=== PATIENT | female | born 1980 | race Caucasian/White ===

== ENCOUNTER 2016-09-16 01:04 | Emergency (ER) | payer OTHER ==
[2016-09-16 01:09] VITALS: TEMP 97.4
[2016-09-16] MEDS ORDERED: diphenhydrAMINE 50 MG/ML 1 ML VIAL IVP STA (01:23)
[2016-09-16] MEDS ORDERED: SODIUM CHLORIDE 0.9% 1,000 ML IV STA (01:23)
[2016-09-16] MEDS ORDERED: methylPREDNISolone SOD SUCCI 125 MG/2 ML VIAL IV STA (01:23)
[2016-09-16] MEDS ORDERED: FAMOTIDINE 20 MG/2 ML VIAL IV STA (01:24)
[2016-09-16] MEDS ORDERED: LORazepam 2 MG/ML SYRINGE IV STA (01:55)
--- NOTE | 2016-09-16 02:04 | ED ---
Allergic Reaction HPI - General Chief complaint: Allergic Reaction Stated complaint: allergic reaction Time Seen by Provider: 09/16/16 01:21 Source: patient, family, RN notes reviewed Mode of arrival: ambulatory Limitations: no limitations - History of Present Illness Initial Comments: 35-year-old female presents to the emergency department with a chief complaint of ALLERGIC reaction. Patient states that she took gabapentin for the first time tonight. Patient states that immediately after she took this she felt her body get hot K a chief throat started to get states she has well. Patient states that she is concerned she is having ALLERGIC Reaction so she took Benadryl this was around 11:00 tonight. Patient states that immediately she did not feel better she waited a few minutes and she does not feel better as well as she came to the ER. Patient states this time she still feels itchy and hot. Patient denies any recent fever, chills, shortness of breath, chest pain, back pain, abdominal pain, nausea vomiting, numbness or tingling, dysuria or hematuria, constipation or diarrhea, headaches or visual changes, or any other current symptoms. - Related Data Home Medications Medication Instructions Recorded Confirmed SUMAtriptan SUCCINATE [Imitrex] 50 mg PO BID PRN 03/03/16 09/16/16 Rizatriptan Benzoate [Maxalt] 5 mg PO BID PRN 06/28/16 09/16/16 Gabapentin [Neurontin] 200 mg PO HS 09/16/16 09/16/16 Previous Rx's Medication Instructions Recorded Ibuprofen [Motrin] 800 mg PO Q8HR PRN #30 tab 03/25/15 Famotidine [Pepcid] 20 mg PO BID #10 tablet 09/16/16 diphenhydrAMINE [Benadryl] 50 mg PO HS PRN #5 capsule 09/16/16 predniSONE 50 mg PO DAILY #5 tab 09/16/16 Allergies Allergy/AdvReac Type Severity Reaction Status Date / Time gadobenate dimeglumine Allergy Severe Swelling Verified 09/16/16 01:09 [From Multihance] Iodinated Contrast Media - Allergy Severe Itching Verified 09/16/16 01:09 Oral and [Iodinated Contrast Media - IV Dye] cefaclor [From Ceclor] Allergy Rash/Hives Verified 09/16/16 01:09 fexofenadine HCl Allergy Rash/Hives Verified 09/16/16 01:09 [From Alice-D 12 Hour] omeprazole [From Prilosec] Allergy Rash/Hives Verified 09/16/16 01:09 omeprazole magnesium Allergy Rash/Hives Verified 09/16/16 01:09 [From Prilosec] pseudoephedrine HCl Allergy Rash/Hives Verified 09/16/16 01:09 [From Alice-D 12 Hour] sulfamethoxazole Allergy Rash/Hives Verified 09/16/16 01:09 [From Septra] trimethoprim [From Septra] Allergy Rash/Hives Verified 09/16/16 01:09 Review of Systems ROS Statement: Those systems with pertinent positive or pertinent negative responses have been documented in the HPI. ROS Other: All systems not noted in ROS Statement are negative. Past Medical History Past Medical History: Pneumonia, Syncope Additional Past Medical History / Comment(s): hx. of hemiplegic migraine, lupus , hypoglycemia, hypotension. History of Any Multi-Drug Resistant Organisms: None Reported Past Surgical History: Appendectomy, Breast Surgery, Section, Cholecystectomy, Tubal Ligation, Uterine Ablation Additional Past Surgical History / Comment(s): breast augmentation, many laparoscopies, oral surgery Past Anesthesia/Blood Transfusion Reactions: No Reported Reaction Additional Past Anesthesia/Blood Transfusion Reaction / Comment(s): anesthesia makes pt weepy Past Psychological History: No Psychological Hx Reported Smoking Status: Never smoker Past Alcohol Use History: Rare Past Drug Use History: None Reported - Past Family History Mother Family Medical History: No Reported History (Mother is 63-year-old the and has history of migraine as well as Whipple procedure.) Additional Family Medical History / Comment(s): migraines Sister(s) Family Medical History: No Reported History (Patient has 3 sisters no major medical problems) Son(s) Family Medical History: No Reported History (Patient has 2 sons no major medical problems) Daughter(s) Family Medical History: No Reported History (Patient has one daughter no major medical problems.) Father Family Medical History: Hypertension, Myocardial Infarction ([place]) (Father is 61- year-old has history of hypertension and myocardial infarction.) Additional Family Medical History / Comment(s): father has leukemia General Exam - General Exam Comments Initial Comments: General: The patient is awake and alert, in no distress, and does not appear acutely ill. Eye: Pupils are equal, round and reactive to light, extra-ocular movements are intact; there is normal conjunctiva bilaterally. No signs of icterus. Mild redness to bilateral cheeks. Ears, nose, mouth and throat: There are moist mucous membranes and no oral lesions. Neck: The neck is supple, there is no tenderness. Cardiovascular: There is a regular rate and rhythm. No murmur, rub or gallop is appreciated. Respiratory: Lungs are clear to auscultation, respirations are non-labored, breath sounds are equal. No wheezes, stridor, rales, or rhonchi. Gastrointestinal: Soft, non-distended, non-tender abdomen without masses or organomegaly noted. There is no rebound or guarding present. No CVA tenderness. Bowel sounds are unremarkable. Back: There is no tenderness to palpation in the midline. There is no obvious deformity. No rashes noted. Musculoskeletal: Normal ROM, no tenderness, There is no pedal edema. There is no calf tenderness or swelling. Sensation intact. Pulses equal bilaterally 2+. Neurological: CN II-XII intact, There are no obvious motor or sensory deficits. Coordination appears grossly intact. Speech is normal. Skin: Skin is warm and dry and no rashes or lesions are noted. Psychiatric: Cooperative, appropriate mood & affect, normal judgment. Limitations: no limitations Course Vital Signs 09/16/16 09/16/16 09/16/16 01:07 01:32 01:43 Temperature 97.4 F L Pulse Rate 108 H 100 Respiratory 20 22 22 Rate Blood Pressure 165/94 157/89 O2 Sat by Pulse 98 98 Oximetry Medical Decision Making - Medical Decision Making 35 yo female presents emergency Department chief complaint ALLERGIC reaction. This time patient was given medications and watched for over 2 hours We will start her medication for home due to the fact that it was medication and will stay in her system. We discussed return parameters and follow-up. Patient stated that she understood and all her questions have been answered. At this time she will be discharged home. Disposition Clinical Impression: Adverse reaction to drug Disposition: HOME SELF-CARE Condition: Stable Instructions: Anaphylaxis (ED) Additional Instructions: Please use medication as discussed. Please follow up with family doctor if symptoms have not improved over the next two days. Please return to the emergency room if your symptoms increase or worsen or for any other concerns. Prescriptions: Famotidine [Pepcid] 20 mg PO BID #10 tablet diphenhydrAMINE [Benadryl] 50 mg PO HS PRN #5 capsule PRN Reason: Itching predniSONE 50 mg PO DAILY #5 tab Referrals: Claude Diaz MD [Primary Care Provider] - 1-2 days Time of Disposition: 03:09
[2016-09-16 03:49] VITALS: BP 145/84; PULSE 93; RESP 16
== END 2016-09-16 03:48 | disposition home or self-care (01) ==
LOC: EC 01:04
DX: R20.8 Other disturbances of skin sensation (principal); L29.9 Pruritus, unspecified; T42.6X5A Adverse effect of other antiepileptic and sedative-hypnotic drugs, initial encounter; G43.409 Hemiplegic migraine, not intractable, without status migrainosus; M32.9 Systemic lupus erythematosus, unspecified; Z79.899 Other long term (current) drug therapy; Z91.041 Radiographic dye allergy status; Z88.1 Allergy status to other antibiotic agents; Z88.8 Allergy status to other drugs, medicaments and biological substances
CPT/HCPCS: 99284; 96374; 96375 ×3; J2060; J1200; J2930

== ENCOUNTER → 2016-10-05 | Outpatient (CLI) | payer OTHER ==
--- NOTE | 2016-10-05 19:01 | XR ---
EXAMINATION TYPE: XR KUB DATE OF EXAM: 10/05/2016 6:48 PM COMPARISON: 03/06/2016 HISTORY: Flank pain TECHNIQUE: 2 views FINDINGS: Bowel gas pattern is normal. There is no sign of intestinal obstruction or pneumoperitoneum . Fecal pattern is normal. There are no pathologic calcifications over the kidneys. There is no evide nce of a mass. Bony structures are intact. There are clips from cholecystectomy. IMPRESSION: Nonacute abdomen. No change.
[2016-10-05 20:00] LABS: Appearance,Urine Cloudy (Clear); Bilirubin,Urine Negative (Negative); Glucose,Urine (UA) Negative (Negative); Ketones,Urine Trace (Negative); Leukocyte Esterase,Urine Negative (Negative); Mucus,Urine Moderate /hpf; Nitrite,Urine Negative (Negative); Particle Count 9844; Protein,Urine Trace (Negative); RBC,Urine 1 /hpf (0-5); Specific Gravity,Urine 1.029 (1.001-1.035); Squamous Epithelial Cell,Urine 12 /hpf (0-4); UA Billing (MACRO vs. MICRO) MICRO; Urobilinogen,Urine <2.0 mg/dL (<2.0)
== END | disposition home or self-care (01) ==
LOC: RADXRMAIN 18:35
PROVIDERS: ATTEND Urology
DX: N20.0 Calculus of kidney (principal)
CPT/HCPCS: 74000; 81001; 96365; 96366; 96375

== ENCOUNTER 2017-03-13 00:50 | Emergency (ER) | payer OTHER ==
[2017-03-13 01:00] VITALS: TEMP 99.2
[2017-03-13] MEDS ORDERED: SODIUM CHLORIDE 0.9% 1,000 ML IV STA (01:19)
[2017-03-13] MEDS ORDERED: diphenhydrAMINE 50 MG/ML 1 ML VIAL IVP STA (01:19)
[2017-03-13] MEDS ORDERED: ACETAMINOPHEN TAB 500 MG TAB PO STA (01:19)
[2017-03-13] MEDS ORDERED: KETOROLAC 30 MG/ML 1 ML VIAL IVP STA (01:19)
[2017-03-13] MEDS ORDERED: METOCLOPRAMIDE 5 MG/ML 2 ML VIAL IVP STA (01:19)
[2017-03-13] MEDS ORDERED: methylPREDNISolone SOD SUCCI 125 MG/2 ML VIAL IV STA (01:20)
[2017-03-13] MEDS ORDERED: ORPHENADRINE 30 MG/ML 2 ML VIAL IVP STA (01:20)
[2017-03-13 01:48] LABS: Basophils % (A) 1 %; CH 33.5; CHCM 35.9; Eosinophils # (A) 0.3 k/uL (0-0.7); Eosinophils % (A) 3 %; HCT 39.6 % (34.0-46.0); HDW 2.68; HGB 13.8 gm/dL (11.4-16.0); Luc # (Auto) 0.15; Luc % (Auto) 2; Lymphocytes # (A) 3.6 k/uL (1.0-4.8); Lymphocytes % (A) 45 %; MCH 32.6 pg (25.0-35.0); MCHC 34.8 g/dL (31.0-37.0); MCV 93.8 fL (80.0-100.0); Mean Platelet Volume 6.8; Monocytes # (A) 0.4 k/uL (0-1.0); Monocytes % (A) 5 %; Neutrophils # (A) 3.6 k/uL (1.3-7.7); Neutrophils % (A) 45 %; RBC 4.22 m/uL (3.80-5.40); RDW 12.7 % (11.5-15.5); WBC 7.9 k/uL (3.8-10.6); WBC (Perox) 8.15
[2017-03-13 01:50] LABS: HCG,Qualitative Serum Not Detected
[2017-03-13 01:52] LABS: Anion Gap 10 mmol/L; Blood Urea Nitrogen 11 mg/dL (7-17); Calcium 9.3 mg/dL (8.4-10.2); Carbon Dioxide 20 mmol/L (22-30); Chloride 110 mmol/L (98-107); Glucose 86 mg/dL (74-99); Non-African American GFR(MDRD) >60 (>60 ml/min/1.73 sqM); Potassium 3.6 mmol/L (3.5-5.1); Sodium 140 mmol/L (137-145)
[2017-03-13] MEDS ORDERED: MORPHINE SULFATE 2 MG/ML SYRINGE IVP ONE (02:51)
--- NOTE | 2017-03-13 02:58 | ED ---
Headache HPI - General Chief Complaint: Headache Stated Complaint: headache Time Seen by Provider: 03/13/17 01:08 Source: RN notes reviewed, old records reviewed Mode of arrival: ambulatory Limitations: no limitations - History of Present Illness Initial Comments: This is a 36 year old female presenting with migraine for the past 5 hours. She reports that she took imitrex, and excedrin with little relief. She reports the pain is starting on her lower posterior skull into her neck. She reports that the pain is exacerbated with neck movement. She reports she has a long history of migraines. She states that she feels like the right side of her face is hypersensative, which it is typically the left side. She reports she feels nauseated, but denies vomiting. The headache is not worse with bright lights. She states she has had no falls, or trauma to the area. She denies weakness, chest pain, shortness of breath, abdominal pain. - Related Data Home Medications Medication Instructions Recorded Confirmed SUMAtriptan SUCCINATE [Imitrex] 100 mg PO BID PRN 03/03/16 10/04/16 Propranolol LA [Inderal LA] 60 mg PO DAILY 10/04/16 03/13/17 Aspirin/Acetaminophen/Caffeine 1 each PO 03/13/17 [Excedrin Migraine Caplet] Previous Rx's Medication Instructions Recorded Ibuprofen [Motrin] 800 mg PO Q8HR PRN #30 tab 03/25/15 Ondansetron Odt [Zofran Odt] 4 mg PO Q8HR PRN #12 tab 03/13/17 Allergies Allergy/AdvReac Type Severity Reaction Status Date / Time gadobenate dimeglumine Allergy Severe Swelling Verified 10/05/16 14:35 [From Multihance] Iodinated Contrast- Oral and Allergy Severe Itching Verified 10/05/16 14:35 IV Dye [Iodinated Contrast Media - IV Dye] cefaclor [From Ceclor] Allergy Rash/Hives Verified 10/05/16 14:35 fexofenadine HCl Allergy Rash/Hives Verified 10/05/16 14:35 [From Alice-D 12 Hour] gabapentin [From Neurontin] Allergy Swelling Verified 10/05/16 14:35 omeprazole [From Prilosec] Allergy Rash/Hives Verified 10/05/16 14:35 omeprazole magnesium Allergy Rash/Hives Verified 10/05/16 14:35 [From Prilosec] pseudoephedrine HCl Allergy Rash/Hives Verified 10/05/16 14:35 [From Alice-D 12 Hour] sulfamethoxazole Allergy Rash/Hives Verified 10/05/16 14:35 [From Septra] trimethoprim [From Septra] Allergy Rash/Hives Verified 10/05/16 14:35 Review of Systems ROS Statement: Those systems with pertinent positive or pertinent negative responses have been documented in the HPI. ROS Other: All systems not noted in ROS Statement are negative. Past Medical History Past Medical History: Pneumonia, Syncope Additional Past Medical History / Comment(s): hx. of hemiplegic migraine, lupus , hypoglycemia, hypotension. History of Any Multi-Drug Resistant Organisms: None Reported Past Surgical History: Appendectomy, Breast Surgery, Section, Cholecystectomy, Tubal Ligation, Uterine Ablation Additional Past Surgical History / Comment(s): breast augmentation, many laparoscopies, oral surgery Past Anesthesia/Blood Transfusion Reactions: No Reported Reaction Additional Past Anesthesia/Blood Transfusion Reaction / Comment(s): anesthesia makes pt weepy Past Psychological History: No Psychological Hx Reported Smoking Status: Never smoker Past Alcohol Use History: Rare Past Drug Use History: None Reported - Past Family History Mother Family Medical History: No Reported History (Mother is 63-year-old the and has history of migraine as well as Whipple procedure.) Additional Family Medical History / Comment(s): migraines Sister(s) Family Medical History: No Reported History (Patient has 3 sisters no major medical problems) Son(s) Family Medical History: No Reported History (Patient has 2 sons no major medical problems) Daughter(s) Family Medical History: No Reported History (Patient has one daughter no major medical problems.) Father Family Medical History: Hypertension, Myocardial Infarction ([place]) (Father is 61- year-old has history of hypertension and myocardial infarction.) Additional Family Medical History / Comment(s): father has leukemia General Exam - General Exam Comments Initial Comments: Well appearing 36 year old female, no distress. Limitations: no limitations General appearance: alert, in no apparent distress Head exam: Present: atraumatic, normocephalic, normal inspection Eye exam: Present: normal appearance, PERRL, EOMI. Absent: scleral icterus, conjunctival injection, periorbital swelling ENT exam: Present: normal exam, mucous membranes moist Neck exam: Present: normal inspection. Absent: tenderness, meningismus, lymphadenopathy Respiratory exam: Present: normal lung sounds bilaterally. Absent: respiratory distress, wheezes, rales, rhonchi, stridor Cardiovascular Exam: Present: regular rate, normal rhythm, normal heart sounds. Absent: systolic murmur, diastolic murmur, rubs, gallop, clicks GI/Abdominal exam: Present: soft, normal bowel sounds. Absent: distended, tenderness, guarding, rebound, rigid Extremities exam: Present: normal inspection, full ROM, normal capillary refill. Absent: tenderness, pedal edema, joint swelling, calf tenderness Back exam: Present: normal inspection Neurological exam: Present: alert, oriented X3, CN II-XII intact Expanded Patient oriented to: Present: person, place, time Speech: Present: fluid speech Cranial nerves: EOM's Intact: Normal, Gag Reflex: Normal, Tongue Deviation: Normal, Facial Sensation: Normal Cerebellar function: Finger to Nose: Normal Upper motor neuron: Pronator Drift: Normal Sensory exam: Upper Extremity Light Touch: Normal, Lower Extremity Light Touch: Normal Motor strength exam: RUE: 5, LUE: 5, RLE: 5, LLE: 5 Eye Response: (4) open spontaneously Motor Response: (6) obeys commands Verbal Response: (5) oriented Darrin Total: 15 Psychiatric exam: Present: normal affect, normal mood Skin exam: Present: warm, dry, intact, normal color. Absent: rash Course Vital Signs 03/13/17 03/13/17 00:56 03:01 Temperature 99.2 F Pulse Rate 61 76 Respiratory 18 20 Rate Blood Pressure 174/87 145/73 O2 Sat by Pulse 99 410 H Oximetry Medical Decision Making - Medical Decision Making This is a 36 year old female presenting with migraine for the past 5 hours. She reports that she took imitrex, and excedrin with little relief. She reports the pain is starting on her lower posterior skull into her neck. She reports that the pain is exacerbated with neck movement of her neck. Patient given IV fluids , CBC and BMP within normal limits. Paitent given Solumedrol, toradol, norflex, reglan and benadryl. Patient reports that her headache is now diminishing, to an 7/10. Patient has no neurological deficits, therefore I discussed that she does not need CT scan as she has had many and multiple MRI before. Patient will be dsicharged with Rx for zofran for nausea, advised to follow up with PCP. PAtient given note for work. - Lab Data Result diagrams: 03/13/17 01:25 03/13/17 01:25 Lab Results 03/13/17 03/13/17 Range/Units 01:25 01:25 WBC 7.9 (3.8-10.6) k/uL RBC 4.22 (3.80-5.40) m/uL Hgb 13.8 (11.4-16.0) gm/dL Hct 39.6 (34.0-46.0) % MCV 93.8 (80.0-100.0) fL MCH 32.6 (25.0-35.0) pg MCHC 34.8 (31.0-37.0) g/dL RDW 12.7 (11.5-15.5) % Plt Count 333 (150-450) k/uL Neutrophils % 45 % Lymphocytes % 45 % Monocytes % 5 % Eosinophils % 3 % Basophils % 1 % Neutrophils # 3.6 (1.3-7.7) k/uL Lymphocytes # 3.6 (1.0-4.8) k/uL Monocytes # 0.4 (0-1.0) k/uL Eosinophils # 0.3 (0-0.7) k/uL Basophils # 0.0 (0-0.2) k/uL Sodium 140 (137-145) mmol/L Potassium 3.6 (3.5-5.1) mmol/L Chloride 110 H (98-107) mmol/L Carbon Dioxide 20 L (22-30) mmol/L Anion Gap 10 mmol/L BUN 11 (7-17) mg/dL Creatinine 0.60 (0.52-1.04) mg/dL Est GFR (MDRD) Af Amer >60 (>60 ml/min/1.73 sqM) Est GFR (MDRD) Non-Af >60 (>60 ml/min/1.73 sqM) Glucose 86 (74-99) mg/dL Calcium 9.3 (8.4-10.2) mg/dL HCG, Qual Not Detected Disposition Clinical Impression: Migraine Disposition: HOME SELF-CARE Condition: Good Instructions: Migraine Headache (ED), Acute Headache (ED) Additional Instructions: Patient is to rest, increase fluids. Take care at home migraine medication. Patient can also take nausea medication as directed. Follow-up here primary care physician. Return to the emergency department if any alarming signs or symptoms occur. Prescriptions: Ondansetron Odt [Zofran Odt] 4 mg PO Q8HR PRN #12 tab PRN Reason: Nausea Referrals: Claude Diaz MD [Primary Care Provider] - 1-2 days Time of Disposition: 02:59
[2017-03-13 03:02] VITALS: BP 145/73; PULSE 76; RESP 20
== END 2017-03-13 03:08 | disposition home or self-care (01) ==
LOC: EC 00:50
DX: G43.909 Migraine, unspecified, not intractable, without status migrainosus (principal); Z88.1 Allergy status to other antibiotic agents; Z88.8 Allergy status to other drugs, medicaments and biological substances; Z91.041 Radiographic dye allergy status; Z82.0 Family history of epilepsy and other diseases of the nervous system; Z79.82 Long term (current) use of aspirin; Z79.899 Other long term (current) drug therapy
CPT/HCPCS: 99284; 96374; 96375 ×5; 36415; 80048; 85025; 84703; J1200; J2360; J2765; J2930; J1885; J2270

== ENCOUNTER → 2017-04-08 | Outpatient (CLI) | payer OTHER ==
--- NOTE | 2017-04-08 09:35 | MR ---
EXAMINATION TYPE: MR brain wo/w con DATE OF EXAM: 04/08/2017 9:17 AM COMPARISON: Previous study dated 05/05/2016. HISTORY: white matter changes, headaches TECHNIQUE: Multiplanar, multiecho imaging of the brain was obtained with and without intravenous adm inistration of 7 mL intravenous Gadavist. FINDINGS: Midline structures are unremarkable. There is a normal craniocervical junction. Echoplanar diffusion imaging is normal. There are normal vascular flow voids. The orbits are unremarkable. There is no evidence of a CP angle mass lesion. There are approximately 5 subcentimeter FLAIR lesions at the level of the subcortical white matter in the right frontal lobe. These are essentially unchanged from previous. There is no mass effect, midl ine shift or intracranial blood. Following intravenous administration of gadolinium, I do not see evidence of abnormal enhancement. IMPRESSION: 1. NO ACUTE INTRACRANIAL ABNORMALITY. 2. STABLE SUBCENTIMETER FLAIR LESIONS IN THE RIGHT FRONTAL LOBE. THESE ARE VERY NONSPECIFIC. A DIFFER ENTIAL DIAGNOSIS INCLUDES DEMYELINATION, HYPERTENSION, SMALL VESSEL DISEASE, MIGRAINE HEADACHES AND L YME'S DISEASE.
== END | disposition home or self-care (01) ==
LOC: RADMRIMAIN 08:27
PROVIDERS: ATTEND Nurse Practitioner Acute Care
DX: G93.9 Disorder of brain, unspecified (principal); Z88.8 Allergy status to other drugs, medicaments and biological substances; Z88.3 Allergy status to other anti-infective agents
CPT/HCPCS: 70553; A9581

== ENCOUNTER → 2017-04-17 | Outpatient (CLI) | payer OTHER ==
--- NOTE | 2017-04-17 13:19 | XR ---
EXAMINATION TYPE: XR KUB DATE OF EXAM: 04/17/2017 12:25 PM CLINICAL HISTORY: Right-sided flank pain and hematuria. TECHNIQUE: 2 supine KUB images of the abdomen are obtained. COMPARISON: CT abdomen and pelvis March 06, 2016. Abdominal x-ray October 05, 2016. FINDINGS: Small densities in pelvis favoring phleboliths are redemonstrated. No definite new nephroli thiasis is identified. Cholecystectomy clips are redemonstrated. Visualized osseous structures are intact. IMPRESSION: Scattered pelvic phleboliths redemonstrated. No new nephrolithiasis clearly identified.
--- NOTE | 2017-04-17 16:51 | CT ---
EXAMINATION TYPE: CT abdomen pelvis wo con DATE OF EXAM: 04/17/2017 HISTORY: Right flank pain and gross hematuria x 3 days. History of renal stone. CT DLP: 343.40 mGycm. Automated Exposure Control for Dose Reduction was Utilized. TECHNIQUE: CT scan of the abdomen and pelvis is performed without oral or IV contrast. COMPARISON: CT abdomen pelvis March 06, 2016 FINDINGS: Within the limitations of a non-contrast study, the following observations are made. LUNG BASES: No significant abnormality is appreciated. LIVER/GB: Cholecystectomy clips are redemonstrated. PANCREAS: No significant abnormality is seen. SPLEEN: No significant abnormality is seen. ADRENALS: No significant abnormality is seen. KIDNEYS: No renal stones or hydronephrosis is evident bilaterally on current study. There is redemons tration of 4 mm density right pelvis favoring phleboliths on axial image 126 as is stable from prior study. There is stable left-sided 3 mm pelvic phlebolith on axial image 127 and smaller phleboliths i nferior to this in the left pelvis. BOWEL: Debris-filled stomach suggest recent meal ingestion. No suspicious small or large bowel dilata tion is present. GENITAL ORGANS: No gross abnormality seen. LYMPH NODES: No greater than 1cm abdominal or pelvic lymph nodes are appreciated. OSSEOUS STRUCTURES: No significant abnormality is seen. OTHER: No significant additional abnormality is seen. IMPRESSION: No renal stones or hydronephrosis is seen bilaterally. No significant new or acute findin g is present to account for patient's symptoms. The 4 mm right pelvic calcification strongly favors p hlebolith given no interval change in 13 months time.
== END | disposition home or self-care (01) ==
LOC: RADXRMAIN 12:13
PROVIDERS: ATTEND Urology
DX: I87.8 Other specified disorders of veins (principal); N23 Unspecified renal colic
CPT/HCPCS: 74000; 74176

== ENCOUNTER 2017-05-01 15:46 | Emergency (ER) | payer OTHER ==
[2017-05-01 16:03] VITALS: RESP 18
[2017-05-01] MEDS ORDERED: KETOROLAC 30 MG/ML 1 ML VIAL IVP STA (16:50)
[2017-05-01] MEDS ORDERED: SODIUM CHLORIDE 0.9% 2,000 ML IV ONE (16:50)
[2017-05-01] MEDS ORDERED: diphenhydrAMINE 50 MG/ML 1 ML VIAL IVP STA (16:50)
[2017-05-01] MEDS ORDERED: METOCLOPRAMIDE 5 MG/ML 2 ML VIAL IVP STA (16:50)
[2017-05-01] MEDS ORDERED: DEXAMETHASONE SOD PHOSPHATE 10 MG/ML 1 ML VIAL IV STA (16:50)
--- NOTE | 2017-05-01 17:00 | ED ---
Headache HPI - General Chief Complaint: Headache Stated Complaint: Dr Melanie/Migraine Time Seen by Provider: 05/01/17 16:43 Source: patient Mode of arrival: ambulatory Limitations: no limitations - History of Present Illness Initial Comments: Patient is a 36-year-old female who presents with a chief complaint of a migraine headache. The patient states that her headache started in a.m. yesterday. Patient states that she has a history of migraines, but this is a typical migraine headache for her however it is lasting longer than normal. Patient states that at home she takes Excedrin, Motrin, and Imitrex for headaches. The patient states that she took 2 Imitrex today without relief. Patient is currently being treated with Botox for headaches. Patient states that there are no aggravating or alleviating factors, which is common for her. Timing is constant. Patient denies any loss of consciousness, disequilibrium, or other neuro deficits currently. Patient states that she does have somewhat blurry vision though this is normal for her when she gets migraines. - Related Data Home Medications Medication Instructions Recorded Confirmed SUMAtriptan SUCCINATE [Imitrex] 100 mg PO BID PRN 03/03/16 05/01/17 Propranolol LA [Inderal LA] 60 mg PO HS 10/04/16 05/01/17 Aspirin/Acetaminophen/Caffeine 1 tab PO QID PRN 03/13/17 05/01/17 [Excedrin Migraine Caplet] Previous Rx's Medication Instructions Recorded Ibuprofen [Motrin] 800 mg PO Q8HR PRN #30 tab 03/25/15 Allergies Allergy/AdvReac Type Severity Reaction Status Date / Time gadobenate dimeglumine Allergy Severe Swelling Verified 05/01/17 17:10 [From Multihance] Iodinated Contrast- Oral and Allergy Severe Itching Verified 05/01/17 17:10 IV Dye [Iodinated Contrast Media - IV Dye] cefaclor [From Ceclor] Allergy Rash/Hives Verified 05/01/17 17:10 fexofenadine HCl Allergy Rash/Hives Verified 05/01/17 17:10 [From Alice-D 12 Hour] gabapentin [From Neurontin] Allergy Swelling Verified 05/01/17 17:10 omeprazole [From Prilosec] Allergy Rash/Hives Verified 05/01/17 17:10 omeprazole magnesium Allergy Rash/Hives Verified 05/01/17 17:10 [From Prilosec] pseudoephedrine HCl Allergy Rash/Hives Verified 05/01/17 17:10 [From Alice-D 12 Hour] sulfamethoxazole Allergy Rash/Hives Verified 05/01/17 17:10 [From Septra] topiramate [From Topamax] Allergy Unknown Verified 05/01/17 17:10 trimethoprim [From Septra] Allergy Rash/Hives Verified 05/01/17 17:10 Review of Systems ROS Statement: Those systems with pertinent positive or pertinent negative responses have been documented in the HPI. ROS Other: All systems not noted in ROS Statement are negative. Constitutional: Denies: fever, chills Eyes: Reports: vision change ENT: Denies: ear pain, throat pain Respiratory: Denies: dyspnea Cardiovascular: Denies: chest pain Endocrine: Denies: fatigue Gastrointestinal: Reports: nausea. Denies: abdominal pain, vomiting Genitourinary: Denies: dysuria Musculoskeletal: Denies: back pain Skin: Denies: rash, lesions Neurological: Reports: headache. Denies: numbness, paresthesias, abnormal gait Past Medical History Past Medical History: Pneumonia, Syncope Additional Past Medical History / Comment(s): hx. of hemiplegic migraine, lupus , hypoglycemia, hypotension. History of Any Multi-Drug Resistant Organisms: None Reported Past Surgical History: Appendectomy, Breast Surgery, Section, Cholecystectomy, Tubal Ligation, Uterine Ablation Additional Past Surgical History / Comment(s): breast augmentation, many laparoscopies, oral surgery Past Anesthesia/Blood Transfusion Reactions: No Reported Reaction Additional Past Anesthesia/Blood Transfusion Reaction / Comment(s): anesthesia makes pt weepy Past Psychological History: No Psychological Hx Reported Smoking Status: Never smoker Past Alcohol Use History: Rare Past Drug Use History: None Reported - Past Family History Mother Family Medical History: No Reported History (Mother is 63-year-old the and has history of migraine as well as Whipple procedure.) Additional Family Medical History / Comment(s): migraines Sister(s) Family Medical History: No Reported History (Patient has 3 sisters no major medical problems) Son(s) Family Medical History: No Reported History (Patient has 2 sons no major medical problems) Daughter(s) Family Medical History: No Reported History (Patient has one daughter no major medical problems.) Father Family Medical History: Hypertension, Myocardial Infarction ([place]) (Father is 61- year-old has history of hypertension and myocardial infarction.) Additional Family Medical History / Comment(s): father has leukemia General Exam Limitations: no limitations General appearance: alert, in no apparent distress Head exam: Present: atraumatic, normocephalic Eye exam: Present: normal appearance, PERRL ENT exam: Present: normal exam, mucous membranes moist Neck exam: Present: normal inspection Respiratory exam: Present: normal lung sounds bilaterally. Absent: respiratory distress Cardiovascular Exam: Present: regular rate, normal rhythm, normal heart sounds GI/Abdominal exam: Present: soft. Absent: distended, tenderness, guarding Rectal exam: Present: deferred Extremities exam: Present: normal inspection Back exam: Present: normal inspection Neurological exam: Present: alert, oriented X3, CN II-XII intact, normal gait Psychiatric exam: Present: normal affect, normal mood Skin exam: Present: warm, dry, intact Course Vital Signs 05/01/17 16:00 Temperature 98.3 F Pulse Rate 66 Respiratory 18 Rate Blood Pressure 161/80 O2 Sat by Pulse 99 Oximetry Medical Decision Making - Medical Decision Making Patient is a 36-year-old female who presents with a chief complaint of migraine headaches which is similar to her migraine headaches in the past. The reason for the patient's visit today is that her normal medications at home have not worked for her. She states that this happens to her every now and then, she has been in the ER for migraine headaches before. Initial evaluation, vital signs are stable, patient is neurovascularly intact. Visual be given Reglan, Benadryl, Toradol, and Decadron, with 2 L of fluid. Patient will be reassessed in about 45 minutes. 6:42 PM On reevaluation, the patient states that her headache is improving though it's not gone. I discussed further observation with the patient versus discharge home. At this time, the patient states she feels comfortable with discharge to go home to sleep. At this time I am agreeable with this plan. I answered all of her questions as best my ability. I discussed that she needs to follow up with her primary care doctor and possibly neurology. Further she is instructed to return to the emergency department if her symptoms worsen or change in anyway. Disposition Clinical Impression: Migraine headache, Benign intracranial hypertension, Migraine Disposition: HOME SELF-CARE Condition: Good Instructions: Migraine Headache (ED) Referrals: Claude Diaz MD [Primary Care Provider] - 1-2 days
[2017-05-01 19:17] VITALS: BP 132/71; PULSE 59; TEMP 97.9
== END 2017-05-01 19:18 | disposition home or self-care (01) ==
LOC: EC 15:46
DX: G43.909 Migraine, unspecified, not intractable, without status migrainosus (principal); G93.2 Benign intracranial hypertension; Z86.69 Personal history of other diseases of the nervous system and sense organs; Z91.041 Radiographic dye allergy status; Z88.2 Allergy status to sulfonamides; Z88.8 Allergy status to other drugs, medicaments and biological substances; Z88.1 Allergy status to other antibiotic agents; Z79.899 Other long term (current) drug therapy
CPT/HCPCS: 96375 ×4; 96361 ×3; 96374 ×2; 99283 ×2; J1200; J1100; J2765; J1885

== ENCOUNTER → 2017-06-21 | Outpatient (CLI) | payer OTHER ==
--- NOTE | 2017-06-21 23:16 | MR ---
EXAMINATION TYPE: MR lumbar spine wo con DATE OF EXAM: 06/21/2017 COMPARISON: NONE HISTORY: Pt states Abnormal EMG, Pain and Weakness Right Leg x4 years getting worse TECHNIQUE: Multiplanar, multisequence images of the lumbar spine were acquired. The lumbar vertebra have normal alignment. There is slight narrowing and decreased signal in the L4-5 disc. There is a very small posterior disc bulging at L4-5 and L5-S1. There is developmentally adequ ate spinal canal and no spinal stenosis. Neural foramina are widely patent. Lumbar nerve roots appear normal. There is no compression fracture. I see no bony destructive process. There is no paraspinal mass. IMPRESSION: Minimal degenerative disc changes in the lower lumbar spine. No spinal stenosis. No fracture.
== END | disposition home or self-care (01) ==
LOC: RADMRIMAIN 17:12
PROVIDERS: ATTEND Psychiatry & Neurology Neurology
DX: M47.816 Spondylosis without myelopathy or radiculopathy, lumbar region (principal)
CPT/HCPCS: 72148

== ENCOUNTER 2017-08-05 14:48 | Emergency (ER) | payer OTHER ==
[2017-08-05] MEDS ORDERED: SODIUM CHLORIDE 0.9% 500 ML IV STA (15:47)
--- NOTE | 2017-08-05 15:58 | ED ---
General Adult HPI - General Chief complaint: Seizure Stated complaint: SEIZURE Time Seen by Provider: 08/05/17 15:00 Source: EMS, RN notes reviewed Mode of arrival: EMS Limitations: no limitations - History of Present Illness Initial comments: This is a 36-year-old female who has a past medical history of having had a root canal and an abscess after the canal she is on antibiotics ibuprofen and tramadol. Patient states the pain was a little worse today so she took a tramadol shortly thereafter she woke up and EMS was around her. Patient's boyfriend states that she was on the ground shaking for at least 3 minutes and then she stopped it took her a while to even open her eyes and then she slowly came around to her baseline when EMS arrived. She states she has had a seizure- like activity for years ago but they never were sure if it was a seizure or not. Patient denies any recent fever or chills. Patient denies any headache patient denies numbness weakness. Patient states she's just overall very fatigued at this point. Patient denies any chest pain palpitations difficulty breathing or shortness of breath. Patient denies any abdominal pain patient denies nausea vomiting or diarrhea. Patient denies any recent injury or trauma. - Related Data Home Medications Medication Instructions Recorded Confirmed SUMAtriptan SUCCINATE [Imitrex] 100 mg PO BID PRN 03/03/16 08/05/17 Propranolol LA [Inderal LA] 60 mg PO HS 10/04/16 08/05/17 Aspirin/Acetaminophen/Caffeine 1 tab PO QID PRN 03/13/17 08/05/17 [Excedrin Migraine Caplet] Amoxic-Pot Clav 875-125Mg 1 tab PO BID 08/05/17 08/05/17 [Augmentin 875-125] tiZANidine [Zanaflex] 4 mg PO BID PRN 08/05/17 08/05/17 traMADol HCL [Ultram] 50 mg PO DAILY PRN 08/05/17 08/05/17 Previous Rx's Medication Instructions Recorded Ibuprofen [Motrin] 800 mg PO Q8HR PRN #30 tab 03/25/15 Allergies Allergy/AdvReac Type Severity Reaction Status Date / Time gadobenate dimeglumine Allergy Severe Swelling Verified 08/05/17 15:19 [From Multihance] Iodinated Contrast- Oral and Allergy Severe Itching Verified 08/05/17 15:19 IV Dye [Iodinated Contrast Media - IV Dye] cefaclor [From Ceclor] Allergy Rash/Hives Verified 08/05/17 15:19 fexofenadine HCl Allergy Rash/Hives Verified 08/05/17 15:19 [From Alice-D 12 Hour] gabapentin [From Neurontin] Allergy Swelling Verified 08/05/17 15:19 omeprazole [From Prilosec] Allergy Rash/Hives Verified 08/05/17 15:19 omeprazole magnesium Allergy Rash/Hives Verified 08/05/17 15:19 [From Prilosec] pseudoephedrine HCl Allergy Rash/Hives Verified 08/05/17 15:19 [From Alice-D 12 Hour] sulfamethoxazole Allergy Rash/Hives Verified 08/05/17 15:19 [From Septra] topiramate [From Topamax] Allergy Unknown Verified 08/05/17 15:19 trimethoprim [From Septra] Allergy Rash/Hives Verified 08/05/17 15:19 Review of Systems ROS Statement: Those systems with pertinent positive or pertinent negative responses have been documented in the HPI. ROS Other: All systems not noted in ROS Statement are negative. Past Medical History Past Medical History: Pneumonia, Syncope Additional Past Medical History / Comment(s): hx. of hemiplegic migraine, lupus , hypoglycemia, hypotension. History of Any Multi-Drug Resistant Organisms: None Reported Past Surgical History: Appendectomy, Breast Surgery, Section, Cholecystectomy, Tubal Ligation, Uterine Ablation Additional Past Surgical History / Comment(s): breast augmentation, many laparoscopies, oral surgery Past Anesthesia/Blood Transfusion Reactions: No Reported Reaction Additional Past Anesthesia/Blood Transfusion Reaction / Comment(s): anesthesia makes pt weepy Past Psychological History: No Psychological Hx Reported Smoking Status: Never smoker Past Alcohol Use History: Rare Past Drug Use History: None Reported - Past Family History Mother Family Medical History: No Reported History (Mother is 63-year-old the and has history of migraine as well as Whipple procedure.) Additional Family Medical History / Comment(s): migraines Sister(s) Family Medical History: No Reported History (Patient has 3 sisters no major medical problems) Son(s) Family Medical History: No Reported History (Patient has 2 sons no major medical problems) Daughter(s) Family Medical History: No Reported History (Patient has one daughter no major medical problems.) Father Family Medical History: Hypertension, Myocardial Infarction ([place]) (Father is 61- year-old has history of hypertension and myocardial infarction.) Additional Family Medical History / Comment(s): father has leukemia General Exam - General Exam Comments Initial Comments: GENERAL: Patient is well-developed and well-nourished. Patient is nontoxic and well- hydrated and is in mild distress. ENT: Neck is soft and supple. No significant lymphadenopathy is noted. Oropharynx is clear. Moist mucous membranes. Neck has full range of motion without eliciting any pain. EYES: The sclera were anicteric and conjunctiva were pink and moist. Extraocular movements were intact and pupils were equal round and reactive to light. Eyelids were unremarkable. PULMONARY: Unlabored respirations. Good breath sounds bilaterally. No audible rales rhonchi or wheezing was noted. CARDIOVASCULAR: There is a regular rate and rhythm without any murmurs gallops or rubs. ABDOMEN: Soft and nontender with normal bowel sounds. No palpable organomegaly was noted. There is no palpable pulsatile mass. SKIN: Skin is clear with no lesions or rashes and otherwise unremarkable. NEUROLOGIC: Patient is alert and oriented x3. Cranial nerves II through XII are grossly intact. Motor and sensory are also intact. Normal speech, volume and content. Symmetrical smile. MUSCULOSKELETAL: Normal extremities with adequate strength and full range of motion. No lower extremity swelling or edema. No calf tenderness. LYMPHATICS: No significant lymphadenopathy is noted PSYCHIATRIC: Normal psychiatric evaluation. Normal interpersonal interactions appears functionally intact in deals appropriately with others. No signs of depression. No signs of anxiety. Limitations: no limitations Course Vital Signs 08/05/17 08/05/17 08/05/17 14:53 15:49 16:19 Temperature 98.9 F Pulse Rate 89 72 66 Respiratory 18 Rate Blood Pressure 139/86 141/73 116/71 O2 Sat by Pulse 98 97 Oximetry Medical Decision Making - Medical Decision Making EKG shows normal sinus rhythm at 69 bpm NM interval is 132 QRS is 84 Q-T intervals 44 QTC is 432. Patient's EKG shows no significant ST segment elevation or depression. I compared this EKG to an old EKG no significant changes are noted CT of the brain shows no acute abnormality. Patient has been at her baseline since she's been in the emergency department. Patient has no points this time and would like to be discharged home to follow- up with her neurologist Dr. Acosta - Lab Data Result diagrams: 08/05/17 15:16 08/05/17 15:16 Lab Results 08/05/17 08/05/17 08/05/17 Range/Units 15:16 15:16 16:31 WBC 9.0 (3.8-10.6) k/uL RBC 4.40 (3.80-5.40) m/uL Hgb 13.9 (11.4-16.0) gm/dL Hct 42.5 (34.0-46.0) % MCV 96.6 (80.0-100.0) fL MCH 31.7 (25.0-35.0) pg MCHC 32.8 (31.0-37.0) g/dL RDW 13.5 (11.5-15.5) % Plt Count 338 (150-450) k/uL Neutrophils % 53 % Lymphocytes % 37 % Monocytes % 5 % Eosinophils % 2 % Basophils % 1 % Neutrophils # 4.8 (1.3-7.7) k/uL Lymphocytes # 3.4 (1.0-4.8) k/uL Monocytes # 0.5 (0-1.0) k/uL Eosinophils # 0.2 (0-0.7) k/uL Basophils # 0.1 (0-0.2) k/uL Sodium 140 (137-145) mmol/L Potassium 4.3 (3.5-5.1) mmol/L Chloride 107 (98-107) mmol/L Carbon Dioxide 22 (22-30) mmol/L Anion Gap 11 mmol/L BUN 13 (7-17) mg/dL Creatinine 0.70 (0.52-1.04) mg/dL Est GFR (MDRD) Af Amer >60 (>60 ml/min/1.73 sqM) Est GFR (MDRD) Non-Af >60 (>60 ml/min/1.73 sqM) Glucose 83 (74-99) mg/dL Calcium 9.5 (8.4-10.2) mg/dL Total Bilirubin 0.6 (0.2-1.3) mg/dL AST 20 (14-36) U/L ALT 29 (9-52) U/L Alkaline Phosphatase 58 (38-126) U/L Total Protein 6.8 (6.3-8.2) g/dL Albumin 4.0 (3.5-5.0) g/dL Urine Color Yellow Urine Appearance Clear (Clear) Urine pH 5.5 (5.0-8.0) Ur Specific [place] 1.018 (1.001-1.035) Urine Protein Negative (Negative) Urine Glucose (UA) Negative (Negative) Urine Ketones Negative (Negative) Urine Blood Negative (Negative) Urine Nitrite Negative (Negative) Urine Bilirubin Negative (Negative) Urine Urobilinogen <2.0 (<2.0) mg/dL Ur Leukocyte Esterase Negative (Negative) Urine Opiates Screen Not Detected (NotDetected) Ur Oxycodone Screen Not Detected (NotDetected) Urine Methadone Screen Not Detected (NotDetected) Ur Propoxyphene Screen Not Detected (NotDetected) Ur Barbiturates Screen Not Detected (NotDetected) U Tricyclic Antidepress Not Detected (NotDetected) Ur Phencyclidine Scrn Not Detected (NotDetected) Ur Amphetamines Screen Not Detected (NotDetected) U Methamphetamines Scrn Not Detected (NotDetected) U Benzodiazepines Scrn Not Detected (NotDetected) Urine Cocaine Screen Not Detected (NotDetected) U Marijuana (THC) Screen Not Detected (NotDetected) Disposition Clinical Impression: New onset seizure Disposition: HOME SELF-CARE Instructions: New-Onset Seizure in Adults (ED) Additional Instructions: Patient should follow-up with Dr. Acosta. Patient should not take anymore tramadol. Patient should not drive until she is cleared by Dr. Acosta Referrals: Claude Diaz MD [Primary Care Provider] - 1-2 days Time of Disposition: 17:19
--- NOTE | 2017-08-05 16:19 | CT ---
EXAMINATION TYPE: CT brain wo con DATE OF EXAM: 08/05/2017 COMPARISON: CT brain March 26, 2016. MRI brain April 08, 2017. HISTORY: Seizure CT DLP: 968.7 mGycm. Automated Exposure Control for Dose Reduction was Utilized. TECHNIQUE: CT scan of the head is performed without contrast. FINDINGS: There is persistent low lying cerebellar tonsils but not greater than 5 mm inferior desce nt. There is no acute intracranial hemorrhage, mass effect, or midline shift identified. The ventric les and sulci are within normal limits in size. Rucker-white matter differentiation is maintained. The globes are intact and the visualized sinuses are clear. Metallic ornament anterior to right ear pinn a is noted. The calvarium is intact. IMPRESSION: No acute intracranial hemorrhage, mass effect, or midline shift is seen.
[2017-08-05 16:24] LABS: Basophils # (A) 0.1 k/uL (0-0.2); Basophils % (A) 1 %; Eosinophils # (A) 0.2 k/uL (0-0.7); Eosinophils % (A) 2 %; HCT 42.5 % (34.0-46.0); HGB 13.9 gm/dL (11.4-16.0); Lymphocytes # (A) 3.4 k/uL (1.0-4.8); Lymphocytes % (A) 37 %; MCH 31.7 pg (25.0-35.0); MCHC 32.8 g/dL (31.0-37.0); MCV 96.6 fL (80.0-100.0); Mean Platelet Volume 7.3; Monocytes # (A) 0.5 k/uL (0-1.0); Monocytes % (A) 5 %; Neutrophils # (A) 4.8 k/uL (1.3-7.7); Neutrophils % (A) 53 %; Platelet Count 338 k/uL (150-450); RDW 13.5 % (11.5-15.5)
[2017-08-05 16:35] LABS: ALT 29 U/L (9-52); AST 20 U/L (14-36); Alkaline Phosphatase 58 U/L (38-126); Anion Gap 11 mmol/L; Blood Urea Nitrogen 13 mg/dL (7-17); Calcium 9.5 mg/dL (8.4-10.2); Carbon Dioxide 22 mmol/L (22-30); Chloride 107 mmol/L (98-107); Glucose 83 mg/dL (74-99); Potassium 4.3 mmol/L (3.5-5.1); Sodium 140 mmol/L (137-145); Total Bilirubin 0.6 mg/dL (0.2-1.3); Total Protein 6.8 g/dL (6.3-8.2)
[2017-08-05 16:44] LABS: Appearance,Urine Clear (Clear); Bilirubin,Urine Negative (Negative); Blood,Urine Negative (Negative); Color,Urine Yellow; Glucose,Urine (UA) Negative (Negative); Ketones,Urine Negative (Negative); Leukocyte Esterase,Urine Negative (Negative); Nitrite,Urine Negative (Negative); PH, Urine 5.5 (5.0-8.0); Protein,Urine Negative (Negative); Specific Gravity,Urine 1.018 (1.001-1.035); Urobilinogen,Urine <2.0 mg/dL (<2.0)
[2017-08-05 16:54] LABS: Amphetamine Screen,Urine Not Detected (NotDetected); Barbiturate Screen,Urine Not Detected (NotDetected); Benzodiazepines Screen,Urine Not Detected (NotDetected); Cocaine Screen,Urine Not Detected (NotDetected); Methadone Screen, Urine Not Detected (NotDetected); Opiate Screen,Urine Not Detected (NotDetected); Oxycodone Screen, Urine Not Detected (NotDetected); Phencyclidine Screen,Urine Not Detected (NotDetected); Tricyclic Antidepressant,Urine Not Detected (NotDetected); Urn Cannabinoid Scrn Not Detected (NotDetected)
[2017-08-05 17:21] VITALS: BP 125/77; PULSE 67; RESP 16; TEMP 99.3
== END 2017-08-05 17:28 | disposition home or self-care (01) ==
LOC: EC 14:48
DX: R56.9 Unspecified convulsions (principal); Z91.041 Radiographic dye allergy status; Z88.2 Allergy status to sulfonamides; Z88.8 Allergy status to other drugs, medicaments and biological substances; Z88.1 Allergy status to other antibiotic agents; Z79.899 Other long term (current) drug therapy
CPT/HCPCS: 36415; 70450; 80053; 80306; 81003; 85025; 93005; 96360; 99285

== ENCOUNTER 2017-08-24 14:42 | Emergency (ER) | payer OTHER ==
[2017-08-24] MEDS ORDERED: KETOROLAC 30 MG/ML 1 ML VIAL IVP STA ×2 (15:19→17:08)
--- NOTE | 2017-08-24 15:23 | ED ---
Extremity Problem HPI - General Chief complaint: Extremity Problem,Nontraumatic Stated complaint: left arm pain/dizzy/fever Time Seen by Provider: 08/24/17 15:07 Source: patient, RN notes reviewed, old records reviewed Mode of arrival: wheelchair Limitations: no limitations - History of Present Illness Initial comments: This is a 36-year-old female who states she had the onset around 12:30 this afternoon of some left arm pain and some dizziness lightheadedness and nausea. She also complained of palpitations she states she was at work at this time the pain in her arm is sharp 10/10 severity. She states she has the pain starting from her collarbone radiating down to her proximal arm. No shortness of breath no fevers chills or sweats she states she did have some irregularity to her heartbeat. She denies any trauma. No cough no fevers chills or sweats. The patient is a nonsmoker. MD Complaint: extremity pain - Related Data Home Medications Medication Instructions Recorded Confirmed SUMAtriptan SUCCINATE [Imitrex] 100 mg PO BID PRN 03/03/16 08/24/17 Aspirin/Acetaminophen/Caffeine 1 tab PO QID PRN 03/13/17 08/24/17 [Excedrin Migraine Caplet] tiZANidine [Zanaflex] 4 mg PO BID PRN 08/05/17 08/24/17 Ibuprofen [Motrin] 800 mg PO Q8HR PRN 08/24/17 08/24/17 Propranolol HCl [Inderal LA] 80 mg PO HS 08/24/17 08/24/17 Allergies Allergy/AdvReac Type Severity Reaction Status Date / Time gadobenate dimeglumine Allergy Severe Swelling Verified 08/24/17 15:53 [From Multihance] Iodinated Contrast- Oral and Allergy Severe Itching Verified 08/24/17 15:53 IV Dye [Iodinated Contrast Media - IV Dye] cefaclor [From Ceclor] Allergy Rash/Hives Verified 08/24/17 15:53 fexofenadine HCl Allergy Rash/Hives Verified 08/24/17 15:53 [From Alice-D 12 Hour] gabapentin [From Neurontin] Allergy Swelling Verified 08/24/17 15:53 omeprazole [From Prilosec] Allergy Rash/Hives Verified 08/24/17 15:53 omeprazole magnesium Allergy Rash/Hives Verified 08/24/17 15:53 [From Prilosec] pseudoephedrine HCl Allergy Rash/Hives Verified 08/24/17 15:53 [From Alice-D 12 Hour] sulfamethoxazole Allergy Rash/Hives Verified 08/24/17 15:53 [From Septra] topiramate [From Topamax] Allergy Unknown Verified 08/24/17 15:53 trimethoprim [From Septra] Allergy Rash/Hives Verified 08/24/17 15:53 tramadol AdvReac SEIZURE Verified 08/24/17 15:53 Review of Systems ROS Statement: Those systems with pertinent positive or pertinent negative responses have been documented in the HPI. ROS Other: All systems not noted in ROS Statement are negative. Past Medical History Past Medical History: Syncope Additional Past Medical History / Comment(s): hx. of hemiplegic migraine, lupus , hypoglycemia, hypotension. History of Any Multi-Drug Resistant Organisms: None Reported Past Surgical History: Appendectomy, Breast Surgery, Section, Cholecystectomy, Tubal Ligation, Uterine Ablation Additional Past Surgical History / Comment(s): breast augmentation, many laparoscopies, oral surgery Past Anesthesia/Blood Transfusion Reactions: No Reported Reaction Additional Past Anesthesia/Blood Transfusion Reaction / Comment(s): anesthesia makes pt weepy Past Psychological History: No Psychological Hx Reported Smoking Status: Never smoker Past Alcohol Use History: Rare Past Drug Use History: None Reported - Past Family History Mother Family Medical History: No Reported History (Mother is 63-year-old the and has history of migraine as well as Whipple procedure.) Additional Family Medical History / Comment(s): migraines Sister(s) Family Medical History: No Reported History (Patient has 3 sisters no major medical problems) Son(s) Family Medical History: No Reported History (Patient has 2 sons no major medical problems) Daughter(s) Family Medical History: No Reported History (Patient has one daughter no major medical problems.) Father Family Medical History: Hypertension, Myocardial Infarction ([place]) (Father is 61- year-old has history of hypertension and myocardial infarction.) Additional Family Medical History / Comment(s): father has leukemia General Exam - General Exam Comments Initial Comments: This is a well-developed well-nourished awake alert oriented 3 female Limitations: no limitations General appearance: alert, anxious Head exam: Present: atraumatic, normocephalic, normal inspection Eye exam: Present: normal appearance, PERRL, EOMI. Absent: scleral icterus, conjunctival injection, periorbital swelling ENT exam: Present: normal exam, mucous membranes moist Neck exam: Present: normal inspection. Absent: tenderness, meningismus, lymphadenopathy Respiratory exam: Present: normal lung sounds bilaterally, chest wall tenderness (Chest wall tenderness over the left clavicle and). Absent: respiratory distress, wheezes, rales, rhonchi, stridor Cardiovascular Exam: Present: regular rate, normal rhythm, normal heart sounds. Absent: systolic murmur, diastolic murmur, rubs, gallop, clicks GI/Abdominal exam: Present: soft, normal bowel sounds. Absent: distended, tenderness, guarding, rebound, rigid Extremities exam: Present: normal inspection, full ROM, tenderness (Is palpation of the triceps musculature and the trapezius musculature. This does seem to reproduce the pain.), normal capillary refill. Absent: pedal edema, joint swelling, calf tenderness Back exam: Present: normal inspection Neurological exam: Present: alert, oriented X3, CN II-XII intact Psychiatric exam: Present: normal affect, anxious Skin exam: Present: warm, dry, intact, normal color. Absent: rash Course Vital Signs 08/24/17 08/24/17 08/24/17 14:58 17:00 17:05 Temperature 96.9 F L Pulse Rate 81 67 62 Respiratory 20 18 18 Rate Blood Pressure 173/87 155/82 134/86 O2 Sat by Pulse 100 100 98 Oximetry 08/24/17 17:14 Temperature Pulse Rate 60 Respiratory 18 Rate Blood Pressure 140/84 O2 Sat by Pulse 96 Oximetry - Reevaluation(s) Reevaluation #1: 08/24/17 16:54 Patient states she's got no relief from the Toradol. The pain he is coming going going from her clavicle or down to her hand. Medical Decision Making - Medical Decision Making Reevaluation patient reveals he get relief somewhat from Toradol nitro did nothing. The presentation is consistent with a myofascial etiology of the left arm pain. I did a long discussion with her regarding findings she does have Motrin 800 mg at home we will add a muscle relaxant. Also I did recommend warm compresses and stretching. She will follow-up with her doctor return when necessary she did get a headache from the nitro but is improved with the Toradol. - Lab Data Result diagrams: 08/24/17 16:05 08/24/17 16:05 Lab Results 08/24/17 08/24/17 08/24/17 Range/Units 16:05 16:05 16:05 WBC 7.5 (3.8-10.6) k/uL RBC 4.29 (3.80-5.40) m/uL Hgb 13.6 (11.4-16.0) gm/dL Hct 40.6 (34.0-46.0) % MCV 94.6 (80.0-100.0) fL MCH 31.7 (25.0-35.0) pg MCHC 33.5 (31.0-37.0) g/dL RDW 12.5 (11.5-15.5) % Plt Count 332 (150-450) k/uL Neutrophils % 48 % Lymphocytes % 43 % Monocytes % 5 % Eosinophils % 2 % Basophils % 0 % Neutrophils # 3.6 (1.3-7.7) k/uL Lymphocytes # 3.2 (1.0-4.8) k/uL Monocytes # 0.4 (0-1.0) k/uL Eosinophils # 0.2 (0-0.7) k/uL Basophils # 0.0 (0-0.2) k/uL PT (9.0-12.0) sec INR (<1.2) APTT (22.0-30.0) sec D-Dimer (<0.60) mg/L FEU Sodium 143 (137-145) mmol/L Potassium 3.8 (3.5-5.1) mmol/L Chloride 108 H (98-107) mmol/L Carbon Dioxide 22 (22-30) mmol/L Anion Gap 13 mmol/L BUN 10 (7-17) mg/dL Creatinine 0.66 (0.52-1.04) mg/dL Est GFR (MDRD) Af Amer >60 (>60 ml/min/1.73 sqM) Est GFR (MDRD) Non-Af >60 (>60 ml/min/1.73 sqM) Glucose 94 (74-99) mg/dL Calcium 9.7 (8.4-10.2) mg/dL Magnesium 1.9 (1.6-2.3) mg/dL Total Bilirubin 0.3 (0.2-1.3) mg/dL AST 17 (14-36) U/L ALT 24 (9-52) U/L Alkaline Phosphatase 61 (38-126) U/L Total Creatine Kinase 52 (30-135) U/L CK-MB (CK-2) <0.2 (0.0-2.4) ng/mL CK-MB (CK-2) Rel Index Troponin I <0.012 (0.000-0.034) ng/mL Total Protein 6.9 (6.3-8.2) g/dL Albumin 4.0 (3.5-5.0) g/dL 08/24/17 Range/Units 16:05 WBC (3.8-10.6) k/uL RBC (3.80-5.40) m/uL Hgb (11.4-16.0) gm/dL Hct (34.0-46.0) % MCV (80.0-100.0) fL MCH (25.0-35.0) pg MCHC (31.0-37.0) g/dL RDW (11.5-15.5) % Plt Count (150-450) k/uL Neutrophils % % Lymphocytes % % Monocytes % % Eosinophils % % Basophils % % Neutrophils # (1.3-7.7) k/uL Lymphocytes # (1.0-4.8) k/uL Monocytes # (0-1.0) k/uL Eosinophils # (0-0.7) k/uL Basophils # (0-0.2) k/uL PT 10.1 (9.0-12.0) sec INR 1.0 (<1.2) APTT 23.7 (22.0-30.0) sec D-Dimer 0.52 (<0.60) mg/L FEU Sodium (137-145) mmol/L Potassium (3.5-5.1) mmol/L Chloride (98-107) mmol/L Carbon Dioxide (22-30) mmol/L Anion Gap mmol/L BUN (7-17) mg/dL Creatinine (0.52-1.04) mg/dL Est GFR (MDRD) Af Amer (>60 ml/min/1.73 sqM) Est GFR (MDRD) Non-Af (>60 ml/min/1.73 sqM) Glucose (74-99) mg/dL Calcium (8.4-10.2) mg/dL Magnesium (1.6-2.3) mg/dL Total Bilirubin (0.2-1.3) mg/dL AST (14-36) U/L ALT (9-52) U/L Alkaline Phosphatase (38-126) U/L Total Creatine Kinase (30-135) U/L CK-MB (CK-2) (0.0-2.4) ng/mL CK-MB (CK-2) Rel Index Troponin I (0.000-0.034) ng/mL Total Protein (6.3-8.2) g/dL Albumin (3.5-5.0) g/dL - EKG Data -: EKG Interpreted by Nd EKG shows normal: sinus rhythm (Sinus rhythm rate of 68. Interval 136 QRS duration 84 QT since QTC of 432/[address] configuration. This is compared to an EKG dated 08/05/17 which shows a similar configuration.) - Radiology Data Radiology results: report reviewed, image reviewed Disposition Clinical Impression: Myofascial muscle pain Disposition: HOME SELF-CARE Condition: Good Instructions: Musculoskeletal Pain (ED) Additional Instructions: He may use your Motrin and your muscle relaxant as needed when necessary Referrals: Calude Diaz MD [Primary Care Provider] - 1-2 days
[2017-08-24] MEDS ORDERED: ONDANSETRON 4 MG/2 ML VIAL IVP STA (16:05)
[2017-08-24 16:18] LABS: Basophils % (A) 0 %; Eosinophils # (A) 0.2 k/uL (0-0.7); Eosinophils % (A) 2 %; HCT 40.6 % (34.0-46.0); HGB 13.6 gm/dL (11.4-16.0); Lymphocytes # (A) 3.2 k/uL (1.0-4.8); Lymphocytes % (A) 43 %; MCH 31.7 pg (25.0-35.0); MCHC 33.5 g/dL (31.0-37.0); MCV 94.6 fL (80.0-100.0); Mean Platelet Volume 6.6; Monocytes # (A) 0.4 k/uL (0-1.0); Monocytes % (A) 5 %; Neutrophils # (A) 3.6 k/uL (1.3-7.7); Neutrophils % (A) 48 %; Platelet Count 332 k/uL (150-450); RBC 4.29 m/uL (3.80-5.40); RDW 12.5 % (11.5-15.5); WBC 7.5 k/uL (3.8-10.6)
[2017-08-24 16:32] LABS: D-Dimer 0.52 mg/L FEU (<0.60); Partial Thromboplastin Time 23.7 sec (22.0-30.0); Prothrombin Time 10.1 sec (9.0-12.0)
[2017-08-24 16:34] LABS: ALT 24 U/L (9-52); AST 17 U/L (14-36); Alkaline Phosphatase 61 U/L (38-126); Anion Gap 13 mmol/L; Blood Urea Nitrogen 10 mg/dL (7-17); Calcium 9.7 mg/dL (8.4-10.2); Carbon Dioxide 22 mmol/L (22-30); Chloride 108 mmol/L (98-107); Glucose 94 mg/dL (74-99); Magnesium 1.9 mg/dL (1.6-2.3); Potassium 3.8 mmol/L (3.5-5.1); Sodium 143 mmol/L (137-145); Total Bilirubin 0.3 mg/dL (0.2-1.3); Total Protein 6.9 g/dL (6.3-8.2)
[2017-08-24 16:36] LABS: Creatine Kinase 52 U/L (30-135)
[2017-08-24 16:49] LABS: Creatine Kinase MB <0.2 ng/mL (0.0-2.4); Troponin I <0.012 ng/mL (0.000-0.034)
--- NOTE | 2017-08-24 16:57 | XR ---
EXAMINATION TYPE: XR chest 2V DATE OF EXAM: 08/24/2017 COMPARISON: 06/28/2016 INDICATION: Chest pain TECHNIQUE: Frontal and lateral views of the chest are obtained. FINDINGS: The heart size is normal. The pulmonary vasculature is normal. The lungs are clear. IMPRESSION: 1. No acute pulmonary process.
[2017-08-24] MEDS: NITROGLYCERIN SL TABS 0.4 MG TAB SUBLINGUAL STA ×2 (16:59→17:05)
[2017-08-24 17:01] VITALS: RESP 18
[2017-08-24 17:42] VITALS: BP 121/71; PULSE 59; TEMP 97.5
== END 2017-08-24 17:41 | disposition home or self-care (01) ==
LOC: EC 14:42
DX: M79.1 Myalgia (principal); R42 Dizziness and giddiness; R11.0 Nausea; R00.2 Palpitations; Z82.49 Family history of ischemic heart disease and other diseases of the circulatory system; Z88.8 Allergy status to other drugs, medicaments and biological substances; Z91.041 Radiographic dye allergy status; Z88.1 Allergy status to other antibiotic agents; Z88.2 Allergy status to sulfonamides; Z88.6 Allergy status to analgesic agent; Z79.899 Other long term (current) drug therapy
CPT/HCPCS: 99284; 96374; 96376; 96375; 36415; 93005; 85379; 80053; 82550; 82553; 83735; 84484; 85025; 85610; 85730; 71046; J2405; J1885

== ENCOUNTER 2017-09-06 04:44 | Emergency (ER) | payer OTHER ==
[2017-09-06 04:51] VITALS: RESP 18
[2017-09-06] MEDS ORDERED: AMPICILLIN-SULBACTAM 3 GM in SODIUM CHLORIDE 0.9% 100 ML IVPB STA (05:32)
[2017-09-06] MEDS ORDERED: ONDANSETRON 4 MG/2 ML VIAL IVP STA (05:33)
[2017-09-06] MEDS ORDERED: HYDROmorphone 2 MG/ML 1 ML SYRINGE IVP STA ×2 (05:33→07:22)
[2017-09-06] MEDS ORDERED: HYDROmorphone 4 MG/ML 1 ML SYRINGE IVP STA ×2 (05:36→07:31)
[2017-09-06 06:10] LABS: Basophils % (A) 0 %; Eosinophils # (A) 0.2 k/uL (0-0.7); Eosinophils % (A) 2 %; HCT 39.3 % (34.0-46.0); Lymphocytes # (A) 2.3 k/uL (1.0-4.8); Lymphocytes % (A) 26 %; MCH 32.2 pg (25.0-35.0); MCHC 33.1 g/dL (31.0-37.0); MCV 97.1 fL (80.0-100.0); Mean Platelet Volume 6.6; Monocytes # (A) 0.5 k/uL (0-1.0); Monocytes % (A) 6 %; Neutrophils # (A) 5.5 k/uL (1.3-7.7); Neutrophils % (A) 64 %; Platelet Count 276 k/uL (150-450); RBC 4.04 m/uL (3.80-5.40); RDW 12.4 % (11.5-15.5); WBC 8.6 k/uL (3.8-10.6)
--- NOTE | 2017-09-06 06:54 | CT ---
EXAM: CT Maxillofacial Without Intravenous Contrast CLINICAL HISTORY: Left mandibular pain rule out abscess status post recent root canal TECHNIQUE: Axial computed tomography images of the face without intravenous contrast. CTDI is 32.10 mGy and DLP is 564.40 mGy-cm. This CT exam was performed using one or more of the following dose reduction techniques: automated exposure control, adjustment of the mA and/or kV according to patient size, and/or use of iterative reconstruction technique. COMPARISON: No relevant prior studies available. FINDINGS: Bones/joints: No acute fracture. Soft tissues: There is periapical lucency with cortical dehiscence of the left lateral incisor and canine of the mandible with moderate edema within the adjacent soft tissues. Orbits: Unremarkable. Sinuses: Minimal mucosal thickening of paranasal sinuses. No air- fluid levels. IMPRESSION: There is periapical lucency with cortical dehiscence of the left lateral incisor and canine of the mandible with moderate edema within the adjacent soft tissues. Findings are concerning for phlegmon without a definite abscess identified.
--- NOTE | 2017-09-06 07:22 | ED ---
ENT HPI - General Chief complaint: Dental/Oral Stated complaint: dental pain Time Seen by Provider: 09/06/17 05:22 Source: patient Mode of arrival: ambulatory Limitations: no limitations - History of Present Illness Initial comments: 36 years old female who had a root canal done about a month ago then 3 days ago she developed a swelling over the left side of her chin she went to her dentist and she had x-ray done and they identified a abscess and she was prescribed some antibiotics he was prescribed clindamycin and then quite help her swelling got bigger now she has a hard time opening her mouth and she denies any fever or chills but the swelling seems to be spreading towards the left maxillary sinus - Related Data Home Medications Medication Instructions Recorded Confirmed SUMAtriptan SUCCINATE [Imitrex] 100 mg PO BID PRN 03/03/16 08/24/17 Aspirin/Acetaminophen/Caffeine 1 tab PO QID PRN 03/13/17 08/24/17 [Excedrin Migraine Caplet] tiZANidine [Zanaflex] 4 mg PO BID PRN 08/05/17 08/24/17 Ibuprofen [Motrin] 800 mg PO Q8HR PRN 08/24/17 08/24/17 Propranolol HCl [Inderal LA] 80 mg PO HS 08/24/17 08/24/17 Previous Rx's Medication Instructions Recorded Amoxic-Pot Clav 875-125Mg 1 tab PO Q12HR #20 tablet 09/06/17 [Augmentin 875-125] HYDROmorphone [Dilaudid] 1 mg PO Q4HR PRN #12 tab 09/06/17 Allergies Allergy/AdvReac Type Severity Reaction Status Date / Time gadobenate dimeglumine Allergy Severe Swelling Verified 09/06/17 04:52 [From Multihance] Iodinated Contrast- Oral and Allergy Severe Itching Verified 09/06/17 04:52 IV Dye [Iodinated Contrast Media - IV Dye] cefaclor [From Ceclor] Allergy Rash/Hives Verified 09/06/17 04:52 fexofenadine HCl Allergy Rash/Hives Verified 09/06/17 04:52 [From Alice-D 12 Hour] gabapentin [From Neurontin] Allergy Swelling Verified 09/06/17 04:52 omeprazole [From Prilosec] Allergy Rash/Hives Verified 09/06/17 04:52 omeprazole magnesium Allergy Rash/Hives Verified 09/06/17 04:52 [From Prilosec] pseudoephedrine HCl Allergy Rash/Hives Verified 09/06/17 04:52 [From Alice-D 12 Hour] sulfamethoxazole Allergy Rash/Hives Verified 09/06/17 04:52 [From Septra] topiramate [From Topamax] Allergy Unknown Verified 09/06/17 04:52 trimethoprim [From Septra] Allergy Rash/Hives Verified 09/06/17 04:52 tramadol AdvReac SEIZURE Verified 09/06/17 04:52 Review of Systems ROS Statement: Those systems with pertinent positive or pertinent negative responses have been documented in the HPI. ROS Other: All systems not noted in ROS Statement are negative. Past Medical History Past Medical History: Syncope Additional Past Medical History / Comment(s): hx. of hemiplegic migraine, lupus , hypoglycemia, hypotension. History of Any Multi-Drug Resistant Organisms: None Reported Past Surgical History: Appendectomy, Breast Surgery, Section, Cholecystectomy, Tubal Ligation, Uterine Ablation Additional Past Surgical History / Comment(s): breast augmentation, many laparoscopies, oral surgery Past Anesthesia/Blood Transfusion Reactions: No Reported Reaction Additional Past Anesthesia/Blood Transfusion Reaction / Comment(s): anesthesia makes pt weepy Past Psychological History: No Psychological Hx Reported Smoking Status: Never smoker Past Alcohol Use History: Rare Past Drug Use History: None Reported - Past Family History Mother Family Medical History: No Reported History (Mother is 63-year-old the and has history of migraine as well as Whipple procedure.) Additional Family Medical History / Comment(s): migraines Sister(s) Family Medical History: No Reported History (Patient has 3 sisters no major medical problems) Son(s) Family Medical History: No Reported History (Patient has 2 sons no major medical problems) Daughter(s) Family Medical History: No Reported History (Patient has one daughter no major medical problems.) Father Family Medical History: Hypertension, Myocardial Infarction ([place]) (Father is 61- year-old has history of hypertension and myocardial infarction.) Additional Family Medical History / Comment(s): father has leukemia General Exam - General Exam Comments Initial Comments: General: The patient is awake and alert, in great distress Skin: Skin is warm and dry and no rashes or lesions are noted. Eye: Pupils are equal, round and reactive to light, extra-ocular movements are intact; there is normal conjunctiva bilaterally. Ears, nose, mouth and throat: She is not able to open her mouth for thorough exam because of the swelling and pain noticed swelling on the left mandibular angle as well as left side of the chin him a he is tender to palpate Neck: The neck is supple, there is no tenderness or JVD. Cardiovascular: There is a regular rate and rhythm. No murmur, rub or gallop is appreciated. Respiratory: To auscultation bilateral, no wheezing no rhonchi no distress respiratory mcnulty noticed Gastrointestinal: Soft, non-distended, non-tender abdomen without masses or organomegaly noted. There is no rebound or guarding present. Bowel sounds are unremarkable. Back: There is no tenderness to palpation in the midline. There is no obvious deformity. Musculoskeletal: Normal ROM, no tenderness, There is no pedal edema. There is no calf tenderness or swelling. No cords were appreciated. Neurological: CN II-XII intact, Cranial nerves III through XII are intact. There are no obvious motor or sensory deficits. Coordination appears grossly intact. Speech is normal. Psychiatric: Cooperative, appropriate mood & affect, normal judgment. Limitations: no limitations Course Vital Signs 09/06/17 04:47 Temperature 97.9 F Pulse Rate 77 Respiratory 18 Rate Blood Pressure 131/73 O2 Sat by Pulse 97 Oximetry CBC is normal CT of the facial bone was reviewed and copy was given to the patient so she could take it to the dentist she had a dose of Unasyn in the ER that helped with the pain she'll be gone home on Augmentin 1 g twice daily and now mild give her some Dilaudid 1 mg 3 times a day as needed #12 she will get in to see a dentist today Medical Decision Making - Lab Data Result diagrams: 09/06/17 05:45 Lab Results 09/06/17 Range/Units 05:45 WBC 8.6 (3.8-10.6) k/uL RBC 4.04 (3.80-5.40) m/uL Hgb 13.0 (11.4-16.0) gm/dL Hct 39.3 (34.0-46.0) % MCV 97.1 (80.0-100.0) fL MCH 32.2 (25.0-35.0) pg MCHC 33.1 (31.0-37.0) g/dL RDW 12.4 (11.5-15.5) % Plt Count 276 (150-450) k/uL Neutrophils % 64 % Lymphocytes % 26 % Monocytes % 6 % Eosinophils % 2 % Basophils % 0 % Neutrophils # 5.5 (1.3-7.7) k/uL Lymphocytes # 2.3 (1.0-4.8) k/uL Monocytes # 0.5 (0-1.0) k/uL Eosinophils # 0.2 (0-0.7) k/uL Basophils # 0.0 (0-0.2) k/uL Disposition Clinical Impression: Facial swelling, Dental abscess Disposition: HOME SELF-CARE Instructions: Dental Abscess (ED) Prescriptions: Amoxic-Pot Clav 875-125Mg [Augmentin 875-125] 1 tab PO Q12HR #20 tablet HYDROmorphone [Dilaudid] 1 mg PO Q4HR PRN #12 tab PRN Reason: Pain Referrals: Claude Diaz MD [Primary Care Provider] - 1-2 days
[2017-09-06 08:01] VITALS: BP 124/71; PULSE 76; TEMP 98.2
== END 2017-09-06 08:05 | disposition home or self-care (01) ==
LOC: EC 04:44
DX: K04.7 Periapical abscess without sinus (principal); G43.409 Hemiplegic migraine, not intractable, without status migrainosus; Z79.899 Other long term (current) drug therapy; Z88.6 Allergy status to analgesic agent; Z88.1 Allergy status to other antibiotic agents; Z88.8 Allergy status to other drugs, medicaments and biological substances; Z91.041 Radiographic dye allergy status; Z53.8 Procedure and treatment not carried out for other reasons
CPT/HCPCS: 36415; 85025; 87040; 70486; 99284; 96365; 96375 ×2; 96376; J2405; J0295; J1170

== ENCOUNTER → 2018-02-28 | Outpatient (CLI) | payer OTHER ==
--- NOTE | 2018-02-28 15:37 | XR ---
EXAMINATION TYPE: XR KUB DATE OF EXAM: 02/28/2018 3:27 PM CLINICAL HISTORY: Abdominal pain since Monday. Renal: Per order. TECHNIQUE: Two supine KUB images of the abdomen are obtained. COMPARISON: Abdominal x-ray and CT abdomen and pelvis April 17, 2017. FINDINGS: Scattered gas is seen in non-distended small bowel loops. Gas and fecal material is seen in non-distended colon. A few scattered pelvic phleboliths are present. Cholecystectomy clips are redem onstrated. Slight scoliotic curvature is redemonstrated. IMPRESSION: Overall nonobstructive bowel gas pattern. No definite nephrolithiasis.
== END | disposition home or self-care (01) ==
LOC: RADXRMAIN 15:12
PROVIDERS: ATTEND Urology
DX: R14.3 Flatulence (principal); N23 Unspecified renal colic
CPT/HCPCS: 74018

== ENCOUNTER → 2018-05-22 | Outpatient (CLI) | payer OTHER ==
--- NOTE | 2018-05-23 17:30 | MR ---
MRI CERVICAL SPINE and brain: CLINICAL HISTORY: R 90.82, white matter changes, migraine headaches TECHNIQUE: Multiplanar, multisequence imaging of the cervical spine and brain is performed without IV contrast due to patient's lack of preparation and patient's history of reaction. COMPARISON: MR brain 04/08/2017 FINDINGS: Cervical spine MRI: Sagittal images of the cervical spine show the craniocervical junction to appear within normal limits. The cervical and upper thoracic spinal cord is normal in course, caliber, and signal. There is a spinal curvature noted near the cervicothoracic junction. The vertebral body and i ntravertebral disk heights are normal. The bone marrow signal intensity is within normal limits. Axial images show there is no significant focal disk disease, spinal canal stenosis, neural foraminal narrowing, or spinal cord compromise at any cervical level. There is no significant spinal stenosis. Minimal posterior broad-based disc bulge is present at C5-6 and C6-7 showing mild anterior mass effe ct on the thecal sac. C7-T1 shows a minimal posterior central disc protrusion. IMPRESSION: Cervical cord signal is normal, no significant abnormality is seen to account for patient 's clinical symptoms. Only minimal degenerative disc disease. Brain MRI without contrast: There is no restricted diffusion. Corpus callosum, pituitary, cervical me dullary junction, cerebellopontine angles are normal. Orbits show symmetric appearance. There are nor mal vascular flow voids. No hemorrhage or hydrocephalus. Scattered hyperintensities on inversion severo very and T2-weighted sequences within the subcortical and periventricular white matter are again note d, partially 5-10 lesions are present as on prior. Right frontal lesion on axial image 16 measures ap proximately 4 to 5 mm in greatest dimension. IMPRESSION: Stable brain MRI. No significant interval change.
== END ==
LOC: RADMRIMAIN 17:14
PROVIDERS: ATTEND Nurse Practitioner Acute Care
DX: M50.30 Other cervical disc degeneration, unspecified cervical region (principal); R90.82 White matter disease, unspecified; Z91.041 Radiographic dye allergy status; Z88.8 Allergy status to other drugs, medicaments and biological substances
CPT/HCPCS: 70551; 72141

== ENCOUNTER → 2018-12-31 | Outpatient (CLI) | payer OTHER ==
[2018-12-31 17:37] LABS: Basophils # (A) 0.1 k/uL (0-0.2); Basophils % (A) 1 %; Eosinophils # (A) 0.3 k/uL (0-0.7); Eosinophils % (A) 3 %; HCT 40.2 % (34.0-46.0); HGB 13.3 gm/dL (11.4-16.0); Lymphocytes % (A) 43 %; MCH 30.9 pg (25.0-35.0); MCHC 33.1 g/dL (31.0-37.0); MCV 93.5 fL (80.0-100.0); Monocytes # (A) 0.5 k/uL (0-1.0); Monocytes % (A) 5 %; Neutrophils # (A) 4.4 k/uL (1.3-7.7); Neutrophils % (A) 47 %; Platelet Count 340 k/uL (150-450); RDW 13.4 % (11.5-15.5); WBC 9.4 k/uL (3.8-10.6)
[2018-12-31 19:33] LABS: Erythrocyte Sedimentation Rate 7 mm/hr (0-20)
[2019-01-01 01:26] LABS: Vitamin D 25 Hydroxy 17.8 ng/mL (30.0-100.0)
[2019-01-01 02:10] LABS: ALT 22 U/L (8-44); AST 20 U/L (13-35); Albumin/Globulin Ratio 2.16 (1.60-3.17); Alkaline Phosphatase 67 U/L (41-126); C Reactive Protein <0.4 mg/dL (0.0-0.8); Calcium 9.1 mg/dL (8.7-10.3); Carbon Dioxide 20.6 mmol/L (21.6-31.8); Chloride 108 mmol/L (96-109); Creatine Kinase 56 U/L (26-186); Globulin 1.9 g/dL (1.6-3.3); Glucose 97 mg/dL (70-110); Sodium 139 mmol/L (135-145); Total Bilirubin 0.3 mg/dL (0.3-1.2)
[2019-01-01 12:05] LABS: APTT 36 Sec(s) (<43); Dilute Russell Viper Venom 41 Sec(s) (<44)
== END | disposition home or self-care (01) ==
LOC: LABWHC1 17:10
PROVIDERS: ATTEND Nurse Practitioner Acute Care
DX: G43.019 Migraine without aura, intractable, without status migrainosus (principal); E55.9 Vitamin D deficiency, unspecified; R56.9 Unspecified convulsions
CPT/HCPCS: 36415; 80053; 82306; 82550; 82607; 84207; 84439; 84443; 84481; 85025; 85613; 85652; 85730; 86038; 86140

== ENCOUNTER → 2019-07-18 | Outpatient (CLI) | payer OTHER ==
--- NOTE | 2019-07-18 09:53 | FL ---
EXAMINATION TYPE: FL UGI w esophagus DATE OF EXAM: 07/18/2019 COMPARISON: CT abdomen and pelvis April 17, 2017 HISTORY: Left upper quadrant pain for 45 days. Loss of appetite. Recent weight loss. TECHNIQUE: A double contrast UGI study is performed. Total 31 seconds of fluoroscopic time. 118 imag es are saved. FINDINGS: Business Management Specialist image of the abdomen shows overall nonobstructive bowel gas pattern. Cholecystectomy clips are redemonstrated. The esophagus shows satisfactory motility and emptying into the stomach. No evidence of fixed hiatal hernia, diverticulum, or stricture noted. The stomach shows suboptimal distention. No suspicious prominent mucosal folds. No evidence of any i ntraluminal mass or ulcer disease. Fairly moderate to severe amount of gastroesophageal reflux up to santino level identified during real-time scanning. The duodenal bulb, sweep, and proximal small bowel loops are unremarkable. IMPRESSION: [id number] gastroesophageal reflux otherwise unremarkable study.
== END | disposition home or self-care (01) ==
LOC: RADFLMAIN 07:47
PROVIDERS: ATTEND Internal Medicine Geriatric Medicine
DX: K21.9 Gastro-esophageal reflux disease without esophagitis (principal)
CPT/HCPCS: 74240

== ENCOUNTER → 2019-07-30 | Outpatient (CLI) | payer OTHER ==
--- NOTE | 2019-07-30 07:40 | US ---
EXAMINATION TYPE: US abdomen complete DATE OF EXAM: 07/30/2019 COMPARISON: ct CLINICAL HISTORY: R10.84 GENERALIZED ABD PAIN. EXAM MEASUREMENTS: Liver Length: 11.8 cm Gallbladder Wall: surgically absent CBD: 0.3 cm Spleen: 11.4 cm Right Kidney: 10.1 x 4.5 x 4.8 cm Left Kidney: 10.5 x 5.3 x 4.9 cm Severe overlying bowel gas, technically limited study. Pancreas: Obscured by bowel gas Liver: wnl as seen, unable to visualize in its entirety Gallbladder: Surgically absent Evidence for sonographic Harper's sign: no CBD: wnl Spleen: wnl Right Kidney: No hydronephrosis or masses seen Left Kidney: No hydronephrosis or masses seen as visualize, partially obscure by bowel gas Upper IVC: wnl Abd Aorta: wnl, bifurcation obscured by bowel gas. The visualized liver is heterogeneous. The intrahepatic portion of the IVC and visualized abdominal aorta are within normal limits. There is no evidence of cholelithiasis. Common bile duct is unremar kable. The visualized portions of the pancreas are homogenous. The spleen is unremarkable. Kidneys are symmetric and free of hydronephrosis. No renal lesions are seen on images saved. IMPRESSION: No acute findings are evident.
== END | disposition home or self-care (01) ==
LOC: RADUSWWP 06:56
PROVIDERS: ATTEND Internal Medicine Geriatric Medicine
DX: R10.84 Generalized abdominal pain (principal)
CPT/HCPCS: 76700

== ENCOUNTER 2019-09-04 09:09 | Day surgery (SDC) | payer OTHER ==
[2019-09-02 13:03] VITALS: BMI 26.6
[~2019-09-04 09:09] MED LIST: LACTATED RINGERS 1,000 ML IV SCH; LIDOCAINE 1% 20 ML VIAL (10MG/ML) FOR IV START INTRADERMA PRN
[2019-09-04 09:51] VITALS: TEMP 98.1
[2019-09-04] MEDS ORDERED: MIDAZOLAM 2 MG/2 ML VIAL ONE (09:54)
[2019-09-04] MEDS ORDERED: LIDOCAINE 1% INJ 10MG/ML (20 ML MDV) ONE (09:54)
[2019-09-04] MEDS ORDERED: fentaNYL (PF) 50 MCG/ML 2 ML AMP ONE (09:54)
[2019-09-04] MEDS ORDERED: PROPOFOL 10 MG/ML 20 ML VIAL IV ONE (09:54)
--- NOTE | 2019-09-04 10:21 | P.PCN ---
Date of Procedure: 09/04/19 Procedure(s) Performed: Brief history: Patient is a pleasant 8-year-old white female scheduled for an elective upper endoscopy as well as colonoscopy as a part of evaluation of GERD/abdominal pain and change in bowel habits for the last several months duration. Procedure performed: Esophagogastroduodenoscopy with biopsy Colonoscopy Preoperative diagnosis: GERD Change in bowel habits and abdominal pain Anesthesia: MAC Procedure: After informed consent was obtained from the patient was brought into the endoscopy unit and IV sedation was administered by anesthesia under continuous monitoring. Initially upper endoscopy was done. The Olympus GF 160 video endoscope was inserted inserted into the mouth and esophagus intubated without any difficulty and was gradually advanced into the stomach and duodenum and carefully examined. The bulb and second part of the duodenum appeared normal. Biopsies were done from the duodenum to rule out celiac disease. The scope was then withdrawn into the stomach adequately insufflated with air and upon careful examination the antrum had gastritis and biopsies were done from this area. The body, cardia and fundus appeared normal. The scope was then withdrawn into the esophagus. The GE junction was located at 40 cm to the incisors. It appeared regular with no erythema erosions or ulcerations. Rest of the esophagus appeared normal. Patient tolerated the procedure well. At this time the patient continued to remain sedation. Initial digital rectal examination was normal. Olympus CF 160 video colonoscope was then inserted into the rectum and gradually advanced to the cecum without any difficulty. Careful examination was performed as the scope was gradually being withdrawn. The prep wapoor in several areas of the colon and thorough irrigation was performed. The cecum, ascending colon, transverse colon, descending colon, sigmoid colon and rectum appeared normal. Retroflexion was performed in the rectum and no lesions were noted. Patient tolerated the procedure well. Impression: 1. Upper endoscopy revealed antral erosive gastritis but no evidence of esophagitis or peptic ulcer disease 2. Colonoscopy was within normal limits with no active colitis or colorectal neoplasia Recommendations: Findings of this examination were discussed with the patient as well as and he. She was advised to follow with the biopsy results. if she has any reflux symptoms she can start [id number] H2 blockers as needed. She was advised to start on was monitored laxatives with MiraLAX 1 scoop daily to regulate bowel movements.
[2019-09-04 10:42] VITALS: BP 133/88; PULSE 66; RESP 16
== END 2019-09-04 11:00 | disposition home or self-care (01) ==
LOC: ORWHC2ENDO 09:09
PROVIDERS: ATTEND Internal Medicine Gastroenterology
DX: K29.50 Unspecified chronic gastritis without bleeding (principal); K21.9 Gastro-esophageal reflux disease without esophagitis; R19.4 Change in bowel habit; R19.7 Diarrhea, unspecified; G43.909 Migraine, unspecified, not intractable, without status migrainosus; Z79.899 Other long term (current) drug therapy; Z79.1 Long term (current) use of non-steroidal anti-inflammatories (NSAID); Z79.82 Long term (current) use of aspirin; Z88.8 Allergy status to other drugs, medicaments and biological substances; Z88.1 Allergy status to other antibiotic agents; Z91.041 Radiographic dye allergy status; Z88.2 Allergy status to sulfonamides; Z88.5 Allergy status to narcotic agent; Z91.89 Other specified personal risk factors, not elsewhere classified
CPT/HCPCS: 81025; 88305; 45378; 43239; J2250; J2001; J3010; J2704

== ENCOUNTER 2019-10-04 | Emergency (ER) | payer OTHER | END 2019-10-04 13:08 | disposition home or self-care (01) | CPT/HCPCS: 99284; 96374; 96375 ×2; 36415; 93005; 80053; 83735; 84484; 85025; 85610; 85730; 71046; 70496; 70450; 70498; J1200; J2930; Q9967 ==

== ENCOUNTER → 2020-04-21 | Outpatient (CLI) | payer OTHER ==
--- NOTE | 2020-04-22 10:08 | MM ---
Reason for exam: screening (asymptomatic). Last mammogram was performed 5 years and 6 months ago. History: Saline implants in both breasts, 2010. Took hormonal contraceptives for 13 years beginning at age 14. Physical Findings: A clinical breast exam by your physician is recommended on an annual basis and results should be correlated with mammographic findings. MG Screening Mammo Implant/CAD Bilateral CC, MLO, and ID view(s) were taken. Prior study comparison: October 27, 2014, bilateral MG diagnostic mammo w CAD MARY JO. March 28, 2008, bilateral diagnostic digital mammog. The breast tissue is heterogeneously dense. This may lower the sensitivity of mammography. No suspicious calcifications are seen. Bilateral implants are intact. No significant changes when compared with prior studies. ASSESSMENT: Benign, BI-RAD 2 RECOMMENDATION: Routine screening mammogram of both breasts in 1 year.
== END | disposition home or self-care (01) ==
LOC: RADMAMWWP 07:17
PROVIDERS: ATTEND Obstetrics & Gynecology
DX: Z12.31 Encounter for screening mammogram for malignant neoplasm of breast (principal); Z98.82 Breast implant status
CPT/HCPCS: 77067

== ENCOUNTER 2020-04-28 12:05 | Emergency (ER) | payer OTHER ==
[2020-04-28 12:09] VITALS: RESP 18
[2020-04-28] MEDS ORDERED: SODIUM CHLORIDE 0.9% 1,000 ML IV STA (12:41)
[2020-04-28] MEDS ORDERED: diphenhydrAMINE 50 MG/ML 1 ML VIAL IVP STA (12:41)
[2020-04-28] MEDS ORDERED: FAMOTIDINE 20 MG/2 ML VIAL IV STA (12:41)
[2020-04-28] MEDS ORDERED: methylPREDNISolone SOD SUCCI 125 MG/2 ML VIAL IV STA (12:41)
--- NOTE | 2020-04-28 13:08 | ED ---
Allergic Reaction HPI - General Chief complaint: Allergic Reaction Stated complaint: flu shot allergic reaction [facility] Time Seen by Provider: 04/28/20 12:10 Source: patient Mode of arrival: wheelchair Limitations: no limitations - History of Present Illness Initial Comments: 39-year-old female who presents to the emergency department with reported adverse reaction to the flu shot. Patient reports that she got the injection around 11:45 AM. Shortly afterwards she began having the sensation that her airway was closing off and hoarseness to her voice. Also reports that her lips feel tingly. No hives noted. Denies cough or wheezing. Patient did not take any medications for her symptoms. Patient does have multiple medication ALLERGIES. Denies any other exposures. No alleviating, precipitating or modifying factors - Related Data Home Medications Medication Instructions Recorded Confirmed SUMAtriptan succinate [Imitrex] 100 mg PO BID PRN 03/03/16 10/04/19 Galcanezumab-Gnlm [Emgality] 120 mg SQ Q30D 09/02/19 10/04/19 Propranolol HCl 80 mg PO DAILY 10/04/19 10/04/19 Previous Rx's Medication Instructions Recorded Famotidine [Pepcid] 20 mg PO BID #14 tablet 04/28/20 predniSONE [Deltasone] 20 mg PO BID #10 tab 04/28/20 Allergies Allergy/AdvReac Type Severity Reaction Status Date / Time gadobenate dimeglumine Allergy Severe Swelling Verified 10/04/19 09:16 [From Multihance] Iodinated Contrast Media Allergy Severe Itching Verified 10/04/19 09:16 [Iodinated Contrast Media - IV Dye] cefaclor [From Ceclor] Allergy Rash/Hives Verified 10/04/19 09:16 fexofenadine HCl Allergy Rash/Hives Verified 10/04/19 09:16 [From Alice-D 12 Hour] gabapentin [From Neurontin] Allergy Swelling Verified 10/04/19 09:16 omeprazole [From Prilosec] Allergy Rash/Hives Verified 10/04/19 09:16 omeprazole magnesium Allergy Rash/Hives Verified 10/04/19 09:16 [From Prilosec] pseudoephedrine HCl Allergy Rash/Hives Verified 10/04/19 09:16 [From Alice-D 12 Hour] sulfamethoxazole Allergy Rash/Hives Verified 10/04/19 09:16 [From Septra] topiramate [From Topamax] Allergy Unknown Verified 10/04/19 09:16 trimethoprim [From Septra] Allergy Rash/Hives Verified 10/04/19 09:16 tramadol AdvReac SEIZURE Verified 10/04/19 09:16 Review of Systems ROS Statement: Those systems with pertinent positive or pertinent negative responses have been documented in the HPI. ROS Other: All systems not noted in ROS Statement are negative. Past Medical History Past Medical History: Syncope Additional Past Medical History / Comment(s): change in bowel habits, blood in stool, hx. of hemiplegic migraine, lupus, hypoglycemia, hypotension. Seizure X1, allergic reaction to tramadol History of Any Multi-Drug Resistant Organisms: None Reported Past Surgical History: Appendectomy, Breast Surgery, Section, Cholecystectomy, Tubal Ligation, Uterine Ablation Additional Past Surgical History / Comment(s): breast augmentation, many laparoscopies, oral surgery Past Anesthesia/Blood Transfusion Reactions: Previous Problems w/ Anesthesia Additional Past Anesthesia/Blood Transfusion Reaction / Comment(s): anesthesia makes pt weepy Past Psychological History: No Psychological Hx Reported Smoking Status: Never smoker Past Alcohol Use History: Occasional Past Drug Use History: None Reported - Past Family History Mother Family Medical History: No Reported History Additional Family Medical History / Comment(s): migraines Sister(s) Family Medical History: No Reported History Son(s) Family Medical History: No Reported History Daughter(s) Family Medical History: No Reported History Father Family Medical History: Hypertension, Myocardial Infarction (HI) Additional Family Medical History / Comment(s): father has leukemia General Exam Limitations: no limitations General appearance: alert, in no apparent distress Head exam: Present: atraumatic, normocephalic, normal inspection Eye exam: Present: normal appearance, PERRL, EOMI. Absent: scleral icterus, conjunctival injection, periorbital swelling ENT exam: Present: normal exam, mucous membranes moist, other (no oropharyngeal swelling. Tongue is soft. No drooling, trismus, hoarseness or stridor. ) Neck exam: Present: normal inspection. Absent: tenderness, meningismus, lymphad enopathy Respiratory exam: Present: normal lung sounds bilaterally. Absent: respiratory distress, wheezes, rales, rhonchi, stridor Cardiovascular Exam: Present: regular rate, normal rhythm, normal heart sounds. Absent: systolic murmur, diastolic murmur, rubs, gallop, clicks GI/Abdominal exam: Present: soft, normal bowel sounds. Absent: distended, tenderness, guarding, rebound, rigid Extremities exam: Present: normal inspection, full ROM, normal capillary refill. Absent: tenderness, pedal edema, joint swelling, calf tenderness Back exam: Present: normal inspection Neurological exam: Present: alert, oriented X3, CN II-XII intact Psychiatric exam: Present: normal affect, normal mood Skin exam: Present: warm, dry, intact, normal color, other (no hives, erythema or swelling.). Absent: rash Course Vital Signs 04/28/20 04/28/20 12:06 14:31 Temperature 98.9 F 98.2 F Pulse Rate 77 80 Respiratory 18 18 Rate Blood Pressure 155/92 131/75 O2 Sat by Pulse 98 98 Oximetry Medical Decision Making - Medical Decision Making Upon arrival the patient is placed into room [place] 11. A through history of physical exam was performed. Patient does have some hoarseness to her voice however has no identifiable airway swelling. No lip or facial swelling. She is saturating 100% on room air without signs of any respiratory distress. I did offer an ALLERGY cocktail to include famotidine, Benadryl and Solu-Medrol. The patient did agree to this. IV was established due to patient requested medications were administered. She is observed in the emergency room for 2 hours without worsening symptoms. She'll be discharged home at this time and is instructed to take Benadryl every 6 hours. I also wrote her for 5 days worth of steroids and famotidine. She is to follow-up with her primary care doctor within 2-4 days. Return to the emergency room for any new or worsening symp toms. Patient agreed to this was discharged home in stable condition Disposition Clinical Impression: Allergic reaction Disposition: HOME SELF-CARE Condition: Stable Instructions (If sedation given, give patient instructions): General Allergic Reaction (ED) Additional Instructions: You received your medications around 1 PM. I do recommend taking Benadryl every 6 hours. You should take another dose of famotidine tonight. Start the steroids tomorrow. Return to the emergency room for any new or worsening symptoms Prescriptions: predniSONE [Deltasone] 20 mg PO BID #10 tab Famotidine [Pepcid] 20 mg PO BID #14 tablet Is patient prescribed a controlled substance at d/c from ED?: No Referrals: Claude Diaz MD [Primary Care Provider] - 1-2 days Time of Disposition: 14:06
[2020-04-28 14:33] VITALS: BP 131/75; PULSE 80; TEMP 98.2
== END 2020-04-28 14:31 | disposition home or self-care (01) ==
LOC: EC 12:05
DX: T80.69XA Other serum reaction due to other serum, initial encounter (principal); Z79.899 Other long term (current) drug therapy; Z88.8 Allergy status to other drugs, medicaments and biological substances; Z91.041 Radiographic dye allergy status; Z88.1 Allergy status to other antibiotic agents; Z88.5 Allergy status to narcotic agent; Z88.2 Allergy status to sulfonamides
CPT/HCPCS: 99283; 96374; 96375 ×2; 96361 ×2; J1200; J2930

== ENCOUNTER → 2020-10-15 | Outpatient (CLI) | payer OTHER ==
--- NOTE | 2020-10-15 13:19 | CT ---
EXAMINATION TYPE: CT ChestAbdPelvis w con DATE OF EXAM: 10/15/2020 COMPARISON: Abdomen and pelvis 04/17/2017 HISTORY: 40-year-old female R10.84, R53.1, Generalized pain and abdominal distension, weakness TECHNIQUE: Contiguous axial scanning of the chest, abdomen, and pelvis performed with IV Contrast, pa tient injected with 100 mL of Isovue 300. Delayed images through the kidneys were obtained. Coronal/s agittal reconstructions performed. CT DLP: 923.9 mGycm Automated exposure control for dose reduction was used. FINDINGS: CHEST: Bilateral breast implants. Heart normal size without pericardial effusion. Aorta normal caliber with conventional branching anatomy. No thoracic lymphadenopathy by CT size criteria. Mild biapical pleural-parenchymal scarring. No consolidation or pleural effusion. ABDOMEN: No focal liver lesion or biliary ductal dilatation. Portal venous system is patent. Cholecystectomy c lips. Adrenal glands, left kidney, spleen, and pancreas appear within normal limits. Mild right-sided pelvocaliectasis. No hydroureter or obstructing lesion or calculus seen along the co urse of the right ureter. No dilated small bowel, free fluid, or free air. No mesenteric or retroperitoneal lymphadenopathy. Oral contrast progressed to the distal transverse colon. Mild to moderate stool burden. No pericoloni c inflammatory change. PELVIS: Bladder is urine distended. Numerous pelvic phlebolith. Uterus anteverted. There is a hypodense 1.0 c m cystic area at each uterine cornua, refer to axial image 99 and 102 and sagittal images 56 and 62. No abnormal fluid collection in the pelvis or pelvic lymphadenopathy. Both ovaries are visualized. Th ere is a 1.5 cm dominant follicle or functional cyst of the left ovary. BONES: Moderate degenerative disc disease L5-S1. No osseous destructive process. IMPRESSION: 1. NO SUSPICIOUS FINDINGS OF NEOPLASM/MALIGNANCY IN THE CHEST, ABDOMEN, OR PELVIS. 2. MILD RIGHT-SIDED PELVICALIECTASIS IS NEW FROM 2017 BUT MAY BE TRANSIENT. RESIDUAL DISTENTION FROM A RECENTLY PASSED STONE OR A MILD UPJ STRICTURE ARE ALTERNATIVE CONSIDERATIONS. CONSIDER RENAL ULTRAS OUND FOLLOW-UP TO REASSESS. 3. A 1 CM HYPODENSE/CYSTIC AREA AT EACH UTERINE CORNUA. IF THERE HAS BEEN PREVIOUS ENDOMETRIAL ABLAT ION, FINDINGS CAN REPRESENT FOCAL HEMATOMETRA FROM INCOMPLETE ABLATION. CORRELATE FOR CORRESPONDING S YMPTOMS AND WITH PROCEDURAL HISTORY.
== END ==
LOC: RADCTMAIN 11:44
PROVIDERS: ATTEND Internal Medicine Hematology & Oncology
DX: N28.89 Other specified disorders of kidney and ureter (principal); R93.89 Abnormal findings on diagnostic imaging of other specified body structures
CPT/HCPCS: 71260; 74177; Q9967

== ENCOUNTER → 2021-04-01 | Outpatient (CLI) | payer OTHER ==
--- NOTE | 2021-04-01 16:16 | MR ---
EXAMINATION TYPE: MR cspine/tspine/lspine wo con DATE OF EXAM: 04/01/2021 COMPARISON: Prior MRI cervical spine May 22, 2018. Prior body CT October 15, 2020 HISTORY: Chiari malformation for whole life, headaches, neck and right arm pain to fingers, low back pain into left buttocks. TECHNIQUE: Multiplanar, multisequence imaging of the cervical, thoracic, and lumbar spine are all per formed without IV contrast. FINDINGS: Cervical spine: MRI CERVICAL SPINE: FINDINGS: Sagittal images of the cervical spine show stable slight low-lying cerebellar tonsil into f oramen magnum without greater than 5 mm inferior extension. The cervical and upper thoracic spinal co rd remains normal in caliber and signal. Slight dextroconvex scoliotic curvature centered lower cervi jv spine redemonstrated. The vertebral body and intravertebral disk heights are normal. The bone ma rrow signal intensity is within normal limits. Axial images demonstrate small posterior disc herniations mildly effacing the anterior thecal sac at C3-C4, C5-C6, and most prominent at C6-C7 levels where there is broad-based left paracentral disc pro trusion. Neural foramina are patent at all cervical levels. IMPRESSION: Slight scoliotic curvature with mild multilevel degenerative changes as detailed above. N o significant change from prior. Thoracic spine: FINDINGS: There is reactive levoconvex scoliosis centered upper thoracic spine redemonstrated with sl ight S-shaped scoliosis below this again seen. Vitamin E marker at level of T10 vertebra. Spinal cor d shows normal caliber and signal as it courses the thoracic spine. Vertebral body heights and disc space heights are satisfactory. Tiny posterior disc herniation at T2-T3 level mildly effaces anterio r thecal sac sagittal image 7. Occasional scattered small hemangioma. Mild multilevel anterior spurri ng redemonstrated. Review of the axial images confirms tiny right paracentral disc protrusion T2-T3 level axial image 14 . Wraparound Artifact noted on axial images. No additional large disc herniation present. IMPRESSION: S-Shaped scoliosis with tiny disc herniation T2-T3 level. Lumbar spine: Sagittal images of the lumbar spine show vertebral body heights and alignment to appear satisfactory. There is disc desiccation L4-L5 level with mild disc space narrowing. There is disc desiccation with moderate disc space narrowing and heterogeneous mosaic type II endplate changes involving left L5-S1 level. The conus medullaris is somewhat low in position without abnormal signal in the mid L2 level . The bone marrow signal intensity is within normal limits. Axial images show T12-L1, L1-L2, L2-L3, and L3-L4 levels all appear within normal limits. Axial images at L4-L5 level show mild right greater than left facet degenerative changes. There is po sterior annular tear and tiny central disc protrusion minimally effacing the anterior thecal sac. Pat ent bilateral neural foramina. Axial images at L5-S1 level show left lateral disc protrusion and mild facet arthropathy. Spinal katelyn l is preserved. There is mild left-sided anterior inferior neural foraminal narrowing the right-sided neural foramen is patent. Paraspinal muscle bulk is maintained. Right-sided pyelocaliectasis redemonstrated. Correlate clinical ly. IMPRESSION: Mild degenerative changes in the lower lumbar spine as detailed above
== END | disposition home or self-care (01) ==
LOC: RADMRIMAIN 14:54
PROVIDERS: ATTEND Neurological Surgery
DX: M50.223 Other cervical disc displacement at C6-C7 level (principal); M41.82 Other forms of scoliosis, cervical region; M51.24 Other intervertebral disc displacement, thoracic region; M41.84 Other forms of scoliosis, thoracic region; M51.17 Intervertebral disc disorders with radiculopathy, lumbosacral region; M47.27 Other spondylosis with radiculopathy, lumbosacral region; M99.73 Connective tissue and disc stenosis of intervertebral foramina of lumbar region
CPT/HCPCS: 72141; 72146; 72148

== ENCOUNTER → 2021-05-05 | Outpatient (CLI) | payer OTHER | END | disposition home or self-care (01) | LOC: LABWHC1 14:29 | PROVIDERS: ATTEND Nurse Practitioner Adult Health | DX: Z20.822 Contact with and (suspected) exposure to COVID-19 (principal) | CPT/HCPCS: U0003; U0005 ==

== ENCOUNTER → 2021-09-16 | Outpatient (CLI) | payer OTHER ==
--- NOTE | 2021-09-17 13:29 | MM ---
Reason for exam: screening (asymptomatic). Last mammogram was performed 1 year and 5 months ago. History: Saline implants in both breasts, 2010. Took hormonal contraceptives for 13 years beginning at age 14. Physical Findings: A clinical breast exam by your physician is recommended on an annual basis and results should be correlated with mammographic findings. MG Screening Mammo Implant/CAD Bilateral CC, MLO, and ID view(s) were taken. Prior study comparison: April 21, 2020, bilateral MG screening mammo implant/CAD. October 27, 2014, bilateral MG diagnostic mammo w CAD MARY JO. The breast tissue is heterogeneously dense. This may lower the sensitivity of mammography. There is no discrete abnormality. No significant changes when compared with prior studies. ASSESSMENT: Negative, BI-RAD 1 RECOMMENDATION: Routine screening mammogram of both breasts.
== END | disposition home or self-care (01) ==
LOC: RADMAMWWP 14:57
PROVIDERS: ATTEND Obstetrics & Gynecology
DX: Z12.31 Encounter for screening mammogram for malignant neoplasm of breast (principal)
CPT/HCPCS: 77067

== ENCOUNTER → 2022-06-13 | Outpatient (CLI) | payer OTHER ==
[2022-06-13 17:24] LABS: INR 0.9 (<1.2); Partial Thromboplastin Time 24.2 sec (22.0-30.0); Prothrombin Time 9.9 sec (9.0-12.0)
[2022-06-13 17:33] LABS: Appearance,Urine Cloudy (Clear); Bacteria,Urine Rare /hpf; Bilirubin,Urine Negative (Negative); Blood,Urine Negative (Negative); Color,Urine Yellow; Glucose,Urine (UA) Negative (Negative); Hyaline Casts,Urine 1 /lpf (0-2); Ketones,Urine Negative (Negative); Leukocyte Esterase,Urine Negative (Negative); Mucus,Urine Few /hpf; Nitrite,Urine Negative (Negative); PH, Urine 5.5 (5.0-8.0); Protein,Urine Trace (Negative); RBC,Urine <1 /hpf (0-5); Specific Gravity,Urine 1.032 (1.001-1.035); Squamous Epithelial Cell,Urine 30 /hpf (0-4); Urobilinogen,Urine <2.0 mg/dL (<2.0); WBC,Urine 1 /hpf (0-5)
[2022-06-13 23:01] LABS: Basophils # (A) 0.04 X 10*3/uL (0.00-0.10); Basophils % (A) 0.4 %; Eosinophils # (A) 0.23 X 10*3/uL (0.04-0.35); Eosinophils % (A) 2.4 %; HCT 43.7 % (37.2-46.3); HGB 14.9 g/dL (12.0-15.0); Immature Grans, Automated 0.2 %; Lymphocytes # (A) 4.12 X 10*3/uL (0.90-5.00); Lymphocytes % (A) 42.2 %; MCH 32.6 pg (27.0-32.0); MCHC 34.1 g/dL (32.0-37.0); MCV 95.6 fL (80.0-97.0); Mean Platelet Volume 10.1 fL (9.5-12.2); Monocytes # (A) 0.51 X 10*3/uL (0.20-1.00); Monocytes % (A) 5.2 %; NRBC Per 100 WBC 0 /100 WBCS (0.0-0.0); Neutrophils # (A) 4.85 X 10*3/uL (1.80-7.70); Neutrophils % (A) 49.6 %; Platelet Count 359 X 10*3/uL (140-440); RBC 4.57 X 10*6/uL (4.10-5.20); RDW 12.5 % (11.5-14.5); WBC 9.77 X 10*3/uL (4.50-10.00)
[2022-06-13 23:41] LABS: African American GFR (CKD) 117.7 (60.0-200.0); Albumin 4.8 g/dL (3.8-4.9); Albumin/Globulin Ratio 1.72 (1.60-3.17); Anion Gap 13.4 mmol/L (10.00-18.00); BUN/Creat Ratio 20.41 Ratio (12.00-20.00); Blood Urea Nitrogen 14.9 mg/dL (9.0-27.0); Calcium 9.8 mg/dL (8.7-10.3); Carbon Dioxide 21.5 mmol/L (20.0-27.5); Globulin 2.8 g/dL (1.6-3.3); Non-African American GFR(CKD) 101.6 (60.0-200.0); Potassium 3.9 mmol/L (3.5-5.5); Total Bilirubin 0.2 mg/dL (0.30-1.20); Total Protein 7.5 g/dL (6.2-8.2)
== END | disposition home or self-care (01) ==
LOC: LABWHC1 15:17
PROVIDERS: ATTEND Neurological Surgery
DX: Q06.8 Other specified congenital malformations of spinal cord (principal)
CPT/HCPCS: 36415; 80053; 81001; 83036; 85025; 85610; 85730

== ENCOUNTER → 2022-11-01 | Outpatient (CLI) | payer OTHER ==
[2022-11-01 15:31] LABS: Basophils # (A) 0.04 X 10*3/uL (0.00-0.10); Basophils % (A) 0.6 %; Eosinophils # (A) 0.16 X 10*3/uL (0.04-0.35); Eosinophils % (A) 2.3 %; HCT 42.3 % (37.2-46.3); Immature Grans, Automated 0.3 %; Lymphocytes # (A) 2.93 X 10*3/uL (0.90-5.00); Lymphocytes % (A) 41.7 %; MCH 31.8 pg (27.0-32.0); MCHC 33.1 g/dL (32.0-37.0); MCV 96.1 fL (80.0-97.0); Monocytes # (A) 0.37 X 10*3/uL (0.20-1.00); Monocytes % (A) 5.3 %; NRBC Per 100 WBC 0 /100 WBCS (0.0-0.0); Neutrophils # (A) 3.51 X 10*3/uL (1.80-7.70); Neutrophils % (A) 49.8 %; Platelet Count 337 X 10*3/uL (140-440); RDW 12.7 % (11.5-14.5); WBC 7.03 X 10*3/uL (4.50-10.00)
[2022-11-01 16:15] LABS: ALT 26 U/L (8-44); AST 18 U/L (13-35); Albumin 4.4 g/dL (3.8-4.9); Albumin/Globulin Ratio 1.63 (1.60-3.17); Alkaline Phosphatase 88 U/L (41-126); BUN/Creat Ratio 14.86 Ratio (12.00-20.00); Blood Urea Nitrogen 10.4 mg/dL (9.0-27.0); Calcium 9.4 mg/dL (8.7-10.3); Carbon Dioxide 22.8 mmol/L (20.0-27.5); Chloride 106 mmol/L (96-109); Chol/HDL Ratio 5.24 Ratio; Globulin 2.7 g/dL (1.6-3.3); Glucose 88 mg/dL (70-110); LDL Cholesterol,Calculated 164.8 mg/dL (0.0-131.0); Non-African American GFR(CKD) 106.1 (60.0-200.0); Potassium 4.2 mmol/L (3.5-5.5); Sodium 140 mmol/L (135-145); Total Protein 7.1 g/dL (6.2-8.2)
== END | disposition home or self-care (01) ==
LOC: LABWHC1 08:32
PROVIDERS: ATTEND Internal Medicine Geriatric Medicine
DX: E07.9 Disorder of thyroid, unspecified (principal); E78.5 Hyperlipidemia, unspecified; E55.9 Vitamin D deficiency, unspecified; E53.9 Vitamin B deficiency, unspecified; L93.2 Other local lupus erythematosus; R73.9 Hyperglycemia, unspecified
CPT/HCPCS: 36415; 80053; 80061; 82306; 82607; 83036; 84207; 84439; 84443; 85025

== ENCOUNTER → 2022-11-25 | Outpatient (CLI) | payer OTHER ==
--- NOTE | 2022-11-28 09:25 | MM ---
Reason for Exam: Screening (asymptomatic). Last mammogram was performed 1 year(s) and 2 month(s) ago. Patient History: Menarche at age 12. First Full-Term at age 17. Patient has history of breast feeding. Hormonal Contraceptives for 13 years from age 14 until age 27. 2010, Bilateral Implants. Risk Values: Carline 5 year model risk: 0.5%. NCI Lifetime model risk: 7.1%. Prior Study Comparison: 10/27/2014 Bilateral Diagnostic Mammogram, [facility]. 04/21/2020 Bilateral Screening Mammogram, [facility]. 09/16/2021 Bilateral Screening Mammogram, [facility]. Tissue Density: The breast tissue is heterogeneously dense. This may lower the sensitivity of mammography. Findings: Analyzed By CAD. There is no suspicious group of microcalcifications or new suspicious mass in either breast. Bilateral saline implants redemonstrated and appear intact. Overall Assessment: Benign, BI-RAD 2 Management: Screening Mammogram of both breasts in 1 year. A clinical breast exam by your physician is recommended on an annual basis and results should be correlated with mammographic findings. Electronically signed and approved by: Alexy Manzo D.O.
== END | disposition home or self-care (01) ==
LOC: RADMAMWWP 14:45
PROVIDERS: ATTEND Obstetrics & Gynecology
DX: Z12.31 Encounter for screening mammogram for malignant neoplasm of breast (principal)
CPT/HCPCS: 77063; 77067

== ENCOUNTER → 2022-11-29 | Outpatient (CLI) | payer OTHER | END | disposition home or self-care (01) | LOC: LABWHC1 14:48 | PROVIDERS: ATTEND Nurse Practitioner Acute Care | DX: G43.409 Hemiplegic migraine, not intractable, without status migrainosus (principal); G93.5 Compression of brain; R56.9 Unspecified convulsions; R29.810 Facial weakness | CPT/HCPCS: 36415 ==

== ENCOUNTER → 2024-11-15 | Outpatient (CLI) | payer OTHER ==
--- NOTE | 2024-11-18 08:38 | US ---
EXAMINATION TYPE: US kidneys/renal and bladder DATE OF EXAM: 11/15/2024 COMPARISON: CT 2020 CLINICAL INDICATION: Female, 44 years old with history of N39.9 DISORDER OF URINARY SYSTEM, UNSPECIFI ED; TECHNIQUE: Grayscale imaging of the bilateral kidneys and urinary bladder: FINDINGS: EXAM MEASUREMENTS: Right Kidney: 10.7 x 5.2 x 4.8 cm Left Kidney: 11.8 x 5.4 x 4.6 cm Right Kidney: wnl Left Kidney: wnl Bladder: wnl Bilateral Jets seen: right jet not seen, left jet not seen There is no evidence for hydronephrosis at this point in time. No nephrolithiasis is seen. No fabrizio s are identified. Corticomedullary differentiation is maintained bilaterally. The urinary bladder is anechoic. Only the right ureteral jet identified. IMPRESSION: No hydronephrosis or nephrolithiasis. [facility], , 11/18/2024 8:36 AM
== END | disposition home or self-care (01) ==
LOC: RADUSWWP 15:53
PROVIDERS: ATTEND Urology
DX: N39.9 Disorder of urinary system, unspecified (principal)
CPT/HCPCS: 76770